=== PATIENT | female | born 2000 | race Caucasian/White ===

== ENCOUNTER 2022-02-22 09:05 | Outpatient (REF) | payer OTHER, SELFPAY ==
[2022-02-22 09:37] LABS: MANUAL DIFF FLAG NO
[2022-02-22 09:56] LABS: Basophils Percent Auto 0.3 % (0-2); Eosinophils Percent Auto 0.1 % (0-4); Hemoglobin 14.8 g/dl (12.0-16.0); Imm Gran Abs Auto 0.02 X10*3/uL (0.00-0.03); Imm Gran Pct Auto 0.3 % (0.0-0.4); Lymphocytes Absolute Auto 2.4 X10*3/uL (1.2-4.9); Lymphocytes Percent Auto 31.5 % (20-40); Mean Corpuscular HGB Conc 32.9 g/dl (31.0-35.0); Mean Corpuscular Hemoglobin 29.6 pg (27.0-33.0); Mean Platelet Volume 10.3 fL (9.4-12.3); Monocytes Absolute Auto 0.2 X10*3/uL (0.1-1.2); Neutrophils Absolute Auto 4.9 x10*3/uL (2.0-8.3); Neutrophils Percent Auto 64.8 % (45-73); Platelet Count 277 X10*3/uL (160-400); Red Cell Distribution Width 12.2 % (11.0-16.0); White Blood Count 7.6 X10*3/uL (4.8-10.8)
[2022-02-22 10:35] LABS: Alanine Aminotransferase 23 U/L (0-31); Albumin Level 4.6 g/dL (3.5-5.0); Alkaline Phosphatase 54 U/L (39-117); Anion Gap 12 (12-20); Aspartate Amino Transferase 16 U/L (5-31); Bilirubin Total 0.8 mg/dL (0.0-1.0); Blood Urea Nitrogen 12 mg/dL (9-16); Calcium 10.1 mg/dL (8.4-10.2); Carbon Dioxide 27 mmol/L (22-29); Chloride 103 mmol/L (96-108); Estimated Glomerular Filt Rate > 60; Glucose Fasting 79 mg/dL (60-99); Potassium 4.5 mmol/L (3.3-5.1); Sodium 137 mmol/L (135-145); Total Protein 7.4 g/dL (6.5-8.0)
[2022-02-22 10:48] LABS: Appearance Urine CLEAR; Color Urine STRAW; Glucose Urine UA NEG (NEG); Leukocyte Esterase Urine 2+ (NEG); Nitrite Urine NEG (NEG); PH 5.5 (5.0-8.0); Specific Gravity - Urine <= 1.005 (1.005-1.025); UACC Culture Trigger YES; Urine Blood TRACE (NEG); Urine Ketones NEG (NEG); Urine Protein NEG (NEG-TRACE)
[2022-02-22 10:56] LABS: TSH reflex Free T4 2.16 uIU/mL (0.32-4.0)
[2022-02-22 10:58] LABS: Bacteria Urine 1+ /LPF; RBC Urine 0-2 /HPF (0); Squamous Epithelial Cell Urine 1+ /LPF
== END 2022-02-22 09:06 | disposition home or self-care (01) ==
LOC: HO.LAB 09:05
PROVIDERS: PCP Nurse Practitioner Family; Visit Provider Nurse Practitioner Family
DX: E78.00 Pure hypercholesterolemia, unspecified (principal); F31.81 Bipolar II disorder; I10 Essential (primary) hypertension; Z76.89 Persons encountering health services in other specified circumstances
CPT/HCPCS: 36415; 80053; 81001; 84443; 85025; 87086

== ENCOUNTER 2023-03-16 17:14 | Outpatient (REF) | payer BC, SELFPAY ==
[2023-03-16 17:32] LABS: MANUAL DIFF FLAG NO
[2023-03-16 17:52] LABS: Basophils Percent Auto 0.2 % (0-2); Hemoglobin 15.5 g/dl (12.0-16.0); Imm Gran Abs Auto 0.04 X10*3/uL (0.00-0.03); Imm Gran Pct Auto 0.4 % (0.0-0.4); Lymphocytes Absolute Auto 3.2 X10*3/uL (1.2-4.9); Lymphocytes Percent Auto 30.8 % (20-40); Mean Corpuscular HGB Conc 34.4 g/dl (31.0-35.0); Mean Corpuscular Hemoglobin 30.4 pg (27.0-33.0); Mean Corpuscular Volume 88.2 fL (80.0-98.0); Mean Platelet Volume 10.8 fL (9.4-12.3); Monocytes Absolute Auto 0.4 X10*3/uL (0.1-1.2); Monocytes Percent Auto 3.7 % (2-11); Neutrophils Absolute Auto 6.7 x10*3/uL (2.0-8.3); Neutrophils Percent Auto 64.9 % (45-73); Platelet Count 281 X10*3/uL (160-400); Red Cell Distribution Width 12.3 % (11.0-16.0); White Blood Count 10.3 X10*3/uL (4.8-10.8)
[2023-03-16 18:06] LABS: UPreg QC Valid YES; Urine Pregnancy NEGATIVE (NEGATIVE)
[2023-03-16 18:14] LABS: Alanine Aminotransferase 22 U/L (0-31); Albumin Level 4.4 g/dL (3.5-5.0); Alkaline Phosphatase 57 U/L (39-117); Anion Gap 13 (12-20); Aspartate Amino Transferase 21 U/L (5-31); Bilirubin Total 0.6 mg/dL (0.0-1.0); Blood Urea Nitrogen 7 mg/dL (9-16); Calcium 9.3 mg/dL (8.4-10.2); Carbon Dioxide 26 mmol/L (22-29); Chloride 104 mmol/L (96-108); Estimated Glomerular Filt Rate > 60; Glucose Random 71 mg/dL (60-115); Potassium 4.2 mmol/L (3.3-5.1); Sodium 139 mmol/L (135-145); Total Protein 7.4 g/dL (6.5-8.0)
[2023-03-16 18:44] LABS: Folate 11.8 ng/mL (> or = 4.0); TSH reflex Free T4 2.78 uIU/mL (0.32-4.0); Vitamin B12 266 pg/mL (200-900); Vitamin D 25-OH Total 31.9 ng/mL (>30)
[2023-03-17 04:09] LABS: Syphilis Screen Nonreactive (Nonreactive)
[2023-03-17 04:39] LABS: HBS Num1 3.06 mIU/mL (0-7.99); HBc Num1 0.09 S/CO (0.00-0.79); HBsAGNum1 0.32 S/CO (0.00-0.99); HIV AB/AG Nonreactive (Nonreactive); HIV Num 1 0.08 S/CO (0.00-0.99); Hepatitis B Core Antibody Nonreactive (Nonreactive); Hepatitis B Surface Antigen Negative (Negative); ~Hepatitis B Surface Antibody NONREACTIVE (Nonreactive); ~Hepatitis C Antibody Nonreactive (Nonreactive)
[2023-03-17 05:40] LABS: CT PCR NOT DETECTED (Not Detect.); NG PCR NOT DETECTED (Not Detect.)
== END 2023-03-16 17:15 | disposition home or self-care (01) ==
LOC: HO.LAB 17:14
PROVIDERS: PCP Nurse Practitioner Family; Visit Provider Nurse Practitioner Family
DX: G43.009 Migraine without aura, not intractable, without status migrainosus (principal); R06.83 Snoring; R53.83 Other fatigue; Z13.29 Encounter for screening for other suspected endocrine disorder; Z20.2 Contact with and (suspected) exposure to infections with a predominantly sexual mode of transmission; R52 Pain, unspecified; G47.00 Insomnia, unspecified; E27.8 Other specified disorders of adrenal gland; M79.7 Fibromyalgia
CPT/HCPCS: 0353U; 80053; 81025; 82306; 82607; 82746; 84443; 85025; 86704; 86706; 86780; 86803; 87340; 87389

== ENCOUNTER → 2023-04-06 15:45 | Outpatient (REF) | payer BC, SELFPAY | LOC: HO.SL 15:45 | PROVIDERS: PCP Physician Assistant; Visit Provider Nurse Practitioner Family | DX: R06.83 Snoring (principal); R53.83 Other fatigue | CPT/HCPCS: 95806 ==

== ENCOUNTER 2023-04-07 09:31 | Outpatient (REF) | payer BC, SELFPAY ==
[2023-04-07 11:00] LABS: C Reactive Protein 0.53 mg/dL (< or = 0.50); Magnesium 1.9 mg/dL (1.6-2.6)
[2023-04-07 11:12] LABS: Erythrocyte Sedimentation Rate 2 MM/HR (0-20)
[2023-04-07 11:46] LABS: Rheumatoid Factor < 13.0 IU/mL (<15.0)
[2023-04-10 21:33] LABS: Lyme Abs Screen <0.90 index
[2023-04-12 14:48] LABS: Anti Nuclear Antibody Screen NEGATIVE (NEGATIVE)
== END 2023-04-07 09:32 | disposition home or self-care (01) ==
LOC: HO.LAB 09:31
PROVIDERS: PCP Nurse Practitioner Family; Visit Provider Nurse Practitioner Family
DX: R52 Pain, unspecified (principal)
CPT/HCPCS: 36415; 83735; 84100; 85652; 86038; 86140; 86431; 86617; 86618

== ENCOUNTER 2023-06-01 10:00 | Outpatient (RCR) | payer BC, SELFPAY ==
--- NOTE | 2023-04-18 14:24 | MHC.PT.EP ---
[facility] [place] Office [place] Office [place] Office [address] [phone] F: [phone] F: [phone] F: [phone] F: [phone] Physical Therapy Plan of Care Date of Evaluation: Date of Surgery: N/A Diagnosis: Pain in right leg fibromyalgia Assessment: Pt is a 23yo F who presents to PT with referral diagnosis of pain in right leg and fibromyalgia. Pt reports she has full body pain. She has had lab work and is also referred to flight service agent, neurologist and export clerk. She presents to PT with current impairments in pain, decreased lumbar ROM, decreased LE strength, decreased core stabilization and impaired gait. She is limited functionally by prolonged standing, bending, walking, stair navigation, and sleeping. She is a good candidate to trial skilled PT in order to address current impairments to facilitate management of symptoms and return to PLOF. She is recommended to be seen 2x/week for 4 weeks and will be reassessed at this time. 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 Manual therapy to restore motion and function. Therapeutic exercise to improve strength and flexibility. Neuromuscular re-education for posture and balance. Therapeutic activities to return to functional activities of daily living. Electronically signed by: Lauren Brown, PT, DPT Please sign and return to therapist. Thank you for your referral.
== END 2023-11-14 10:37 | disposition home or self-care (01) ==
LOC: HO.PTWFD 10:00
PROVIDERS: PCP Physician Assistant; Visit Provider Nurse Practitioner Family
DX: M79.604 Pain in right leg (principal); M79.7 Fibromyalgia
CPT/HCPCS: 97014; 97110; 97140; 97163; 97535

== ENCOUNTER 2023-06-07 15:36 | Outpatient (AMB) | payer BC, SELFPAY ==
[2023-06-07 15:46] VITALS: BP 104/66; PULSE 111; O2SAT 98; BMI 24.0
--- NOTE | 2023-06-07 15:46 | MHC.PC.OV ---
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 Medical history significant for bipolar 2 disorder-followed by Psychiatry Dr. Oh and therapist, migraine - was seen by [facility] and started on propranolol and referred to sleep medicine, fibromyalgia - being diagnosed by rheumatology in the past per patient, adrenal hyperplasia - reports being diagnosed by rheumatology in the past - will be seeing Endocrinology 06/2023.? Patient denies injury.? She reports pain all over her body, and OTC medications with no help.? Patient describes her pain as intermittent, pulsating, sharp, ache, and she reports this pain mostly in the muscles that come and go all over her body.? She also reports numbness and tingling in her feet and hands.? Patient has an upcoming appointment with rheumatology 05/2023.? Patient has finished physical therapy with no improvement in her pain.? Patient was on gabapentin in the past with no much improvement in her symptoms and she stopped the medication due to side effects. Patient is accompanied by her mother. ? 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 How often do you have a drink containing alcohol?: 2-4 times a month 2. How many drinks containing alcohol do you have on a typical day when you are drinking?: 1 or 2 3. How often do you have six or more drinks on one occasion?: Never Total Score: 2 Score Reviewed/Action Taken: No MARGARITA-7 AMB Questionnaire AMRGARITA-7 Date MARGARITA - 7 assessed: 03/16/23 (pt currently taking medication ) Source: Developed by Drs. Michelet Parrish, Barby Black, Lemuel Rene and colleagues, with an educational caesar from [employer]. Review of Systems Const Denies body aches, Denies chills, Reports fatigue, Denies fever(s) and Reports headache(s) Eyes Denies change in vision ENT Denies dizziness, Denies otalgia, Reports headache(s), Denies nasal discharge, Denies sinus pain and Denies sore throat Card Denies chest pain, Denies edema, Denies lightheadedness and Denies dyspnea Resp Denies cough and Denies dyspnea GI Denies constipation, Denies diarrhea, Denies nausea and Denies vomiting Denies dysuria Musc Reports as per HPI, Reports back pain, Reports myalgias, Reports arthralgias (hands and wrists ), Denies joint swelling, Reports numbness and Reports tingling Skin/Breast Denies lesions and Denies rash Neuro Denies dizziness, Reports headache(s), Reports numbness and Reports tingling Endo Reports fatigue Physical exam (Primary Care) Vital Signs: Last Vital Signs Pulse 111 H 06/07/23 15:46 BP 104/66 06/07/23 15:46 Pulse Ox 98 06/07/23 15:46 Oxygen Delivery Method Room Air 06/07/23 15:46 BMI result Body Mass Index 24.0 Tobacco/Smoking Status: Tobacco use Status Tobacco use date assessed 06/07/23 06/07/23 15:47 Patient Tobacco Use Status Never used Tobacco 06/07/23 15:47 e-Cigarette/Vaping Use Never Used 06/07/23 15:47 Thrive Assessment: Date of Thrive Assessment Date Thrive assessed 03/16/23 06/07/23 15:47 Const General: cooperative and no acute distress Orientation/consciousness: patient oriented x3 HENMT Other: Left TM normal Right TM partially obstructed by cerumen visualized TM Head: Yes normocephalic and Yes atraumatic Face and sinus: Yes sinuses nontender Mouth: oropharynx normal and moist mucous membranes Throat: Yes posterior oropharynx normal Eyes General: appearance normal, both eyes and all related structures Pupils: Equal, round and reactive pupils present EOM: EOMs intact bilaterally Neck Neck: Yes normal visual inspection, Yes full ROM and Yes no lymphadenopathy Thyroid: other (Anterior neck fullness noted) Resp Effort & Inspection: normal respiratory effort and able to speak in complete sentences Auscultation: clear to auscultation bilaterally, no crackles, no rales, no rhonchi and no wheezes Cardio Rate: regular rate Rhythm: regular rhythm Heart sounds: S1 normal heart sound present, S2 normal heart sound present and no murmurs GI Palpation (GI): Soft to palpation, not firm, nontender, no guarding, not rigid and no hepatosplenomegaly Auscultation: normal bowel sounds General: No CVA tenderness Back/Spine/Pelvis Back: No CVA tenderness Thoracic/Lumbar Spine: thoraco-lumbar ROM normal, straight leg raise negative bilaterally, No paraspinal muscle tenderness, thoracic spinal tenderness and lumbar spinal tenderness Skin General skin exam: no rashes or lesions noted Neuro General: patient oriented x3 Cranial nerves: Yes Equal, round and reactive pupils present Gait exam (Neuro): Normal gait present Motor exam (neuro): 5/5 motor strength present throughout Extrem General: Yes full ROM and No edema Assessment and Plan Assessment & Plan (1) Adrenal hyperplasia: Code(s): E27.8 - Other specified disorders of adrenal gland Plan: Patient has an upcoming appointment with endocrinology 06/2023 (2) Fibromyalgia: Code(s): M79.7 - Fibromyalgia Plan: Will be seeing rheumatology 05/2023 Patient reports that she was on gabapentin in the past although she stopped taking it due to side effects Patient also did have physical therapy with no improvement in her pain (3) Back pain: Code(s): M54.9 - Dorsalgia, unspecified Plan: Physical exam revealed thoracic and lumbar spinal tenderness. Patient has finished physical therapy with no improvement in pain. Will obtain x-ray of thoracic and lumbar spine. Patient was on tizanidine with no improvement in pain. Stop tizanidine. Trial of baclofen 5 mg b.i.d. p.r.n.-educated about drowsiness. Will provide patient with diclofenac cream b.i.d. p.r.n.. Continue heating packs p.r.n.. (4) Whole body pain: Code(s): R52 - Pain, unspecified Plan: Will be seeing rheumatology 05/2023 (5) Neck fullness: Code(s): R22.1 - Localized swelling, mass and lump, neck Plan: Recent thyroid blood work normal, will obtain thyroid ultrasound Plan Follow-up in 3 months or sooner as needed Orders: Orders XR lumbar spine 4V min Today M54.9 - Dorsalgia, unspecified XR thoracic spine 3V Today M54.9 - Dorsalgia, unspecified US thyroid Today R22.1 - Localized swelling, mass and lump, neck Medications: New baclofen 5 mg PO BID PRN 10 tabs 0RF muscle spasm M54.9 - Dorsalgia, unspecified diclofenac sodium 3% 1 appl topical BID PRN 100 grams 0RF pain M54.9 - Dorsalgia, unspecified Coding Level of Care Code Est Pt Level 4 (96534) Diagnoses Adrenal hyperplasia E27.8 Fibromyalgia M79.7 Back pain M54.9 Whole body pain R52 Neck fullness R22.1
== END 2023-06-07 16:12 | disposition home or self-care (01) ==
PROVIDERS: PCP Nurse Practitioner Family; Visit Provider Nurse Practitioner Family
DX: E27.8 Other specified disorders of adrenal gland (principal); M79.7 Fibromyalgia; M54.9 Dorsalgia, unspecified; R22.1 Localized swelling, mass and lump, neck
CPT/HCPCS: 99214

== ENCOUNTER 2023-06-07 16:18 | Outpatient (REF) | payer BC, SELFPAY ==
--- NOTE | ~2023-06-07 | XR_ITS ---
EXAMINATION: XR LUMBOSACRAL SPINE WITH OBLIQUES CLINICAL INFORMATION: Pain COMPARISON: None available. TECHNIQUE: AP, both oblique, and lateral views of the lumbar spine. Lateral view of the lumbosacral junction. FINDINGS: The vertebral bodies and posterior elements are normal. The disc spaces are preserved and the vertebral alignment is normal. The paraspinal soft tissues are normal. XR/XR lumbar spine 4V min IMPRESSION: Unremarkable examination.
--- NOTE | ~2023-06-07 | XR_ITS ---
EXAMINATION: XR THORACIC SPINE CLINICAL INFORMATION: Pain COMPARISON: None available. TECHNIQUE: 3 views of the thoracic spine were obtained. FINDINGS: Minor endplate spurring particularly upper and mid dorsal spine. Minor scoliosis convex left. Vertebral heights and disc spaces are preserved. No paraspinal soft tissue lesion. XR/XR thoracic spine 3V IMPRESSION: Minor degenerative disc disease. No fracture.
== END 2023-06-07 16:19 | disposition home or self-care (01) ==
LOC: HO.XRAY 16:18
PROVIDERS: PCP Nurse Practitioner Family; Visit Provider Nurse Practitioner Family
DX: M54.9 Dorsalgia, unspecified (principal)
CPT/HCPCS: 72072; 72110

== ENCOUNTER 2023-06-15 14:18 | Outpatient (REF) | payer BC, SELFPAY ==
--- NOTE | ~2023-06-15 | US_ITS ---
EXAMINATION: US THYROID CLINICAL INFORMATION: Localized swelling, mass and lump, neck. COMPARISON: None available. TECHNIQUE: Linear transducer grayscale and color Doppler examination with attention to the region of the thyroid. FINDINGS: SIZE: Measurements of the thyroid lobes and nodules are given in sagittal, anteroposterior and transverse dimensions respectively. Right Thyroid Lobe: 3.6 x 1.0 x 1.4 cm, volume 2.6 mL. Parenchyma: The gland echotexture is homogeneous. Thyroid vascularity is normal. Left Thyroid Lobe: 3.8 x 0.8 x 1.3 cm, volume 2.1 mL. Parenchyma: The gland echotexture is homogeneous. Thyroid vascularity is normal. Isthmus: 0.2 cm in maximum AP dimension. No focal thyroid nodule is seen. NODES: No lymphadenopathy is seen in the tissue surrounding the thyroid gland. US/US thyroid IMPRESSION: No suspicious thyroid nodules. ACR TI-RADS RECOMMENDATION REFERENCE: Ultrasound-guided fine-needle aspiration, followup ultrasound, no further follow up. * TR1 (0 point) and TR2 (2 points): No FNA or follow up. * TR3 (3 points): FNA if more than or equal to 2.5 cm in maximum dimension, followup ultrasound in 1, 3 and 5 years if 1.5 to 2.4 cm in maximum dimension. * TR4 (4-6 points): FNA if more than or equal to 1.5 cm in maximum dimension, followup ultrasound in 1, 2, 3 and 5 years if 1 to 1.4 cm in maximum dimension. * TR5 (more than or equal to 7 points): FNA if more than or equal to 1 cm in maximum dimension, followup ultrasound every year for 5 years if 0.5 to 0.9 cm in maximum dimension. * TR3, TR4 or TR5 nodules that are below the size threshold for followup receive no follow up.
== END 2023-06-15 14:19 | disposition home or self-care (01) ==
LOC: HO.US 14:18
PROVIDERS: PCP Nurse Practitioner Family; Visit Provider Nurse Practitioner Family
DX: R22.1 Localized swelling, mass and lump, neck (principal)
CPT/HCPCS: 76536

== ENCOUNTER 2023-06-26 12:53 | Outpatient (AMB) | payer BC, SELFPAY ==
[2023-06-26 12:58] VITALS: BP 108/62; PULSE 107; TEMP 36.3; O2SAT 97; BMI 23.7
--- NOTE | 2023-06-26 12:58 | A.OFFVIS_ITS ---
Intake Vital Signs 06/26/23 12:58 Height 5 ft 2 in Weight 129 lb 13.636 oz BMI 23.7 BP 108/62 Blood Pressure Location Rt brachial Position Sitting Pulse 107 H Pulse Source Pulse Oximeter Temp 97.4 F Temp Source Skin Pulse Oximetry (%) 97 Intake Visit Reasons: FM/Rt leg pain Intake Note: * New pt present today for consult. * C/o pain everywhere Linen Keeper Required: No Accompanied by: Father Allergies No Known Allergies Allergy (Verified 06/26/23 13:00) Medication List - Last Reconciled 06/26/23 by Jimenez Allen MD baclofen 5 mg PO BID PRN buspirone 30 mg PO BID hydroxyzine HCl 25 mg PO BID PRN lamotrigine 200 mg PO BEDTIME norethindrone ac-eth estradiol 1-20 mg-mcg (Loestrin) 1 tab PO DAILY propranolol 10 mg PO BID quetiapine ER 300 mg PO BEDTIME sumatriptan succinate 50 mg PO Q2-4H PRN HPI HPI Comments History of Present Illness Details The patient presents with her father for evaluation of widespread pains and elevated CRP. Her pain syndrome dates back about 5 years. There is a note in the [facility] system from Dr. Rubio, a pediatric rheumatologistfrom about 4-5 years ago. He was impressed by her widespread pain and her back pain at the time and there was suspicion about a spondyloarthritis. Areas of pain include most any joint that is mentioned. She has back pain that is worse with activity but also bothers her at night. She has tried multiple NSAIDs without improvement. Other pain areas include the shoulders, arms, hands, fingers, thighs, knees, ankles and ribs. She does not really notice any significant joint swelling. She also complains of significant fatigue and low energy. She tells me that any attempt at physical activity causes pain. She was tried on gabapentin in the past but it apparently caused too much sedation. She has some baclofen at home that she uses occasionally but she is not sure it helps much. She takes 1 g t.i.d. of acetaminophen if needed. She apparently has bipolar 2 disorder. She is currently on Seroquel at night, lamotrigine at night, and occasionally hydroxyzine for anxiety. Father says that she has nonclassical adrenal hyperplasia. No treatment for that is in place they say although she is on a control pill. Additional attempts at treatment of her pain have in cluded acupuncture, massage, transitional care manager and physical therapy. She notably got worse in February after a trip to [facility] on vacation. 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 She has an FMLA in effect and receives no compensation. The FMLA expires soon and her primary doctor and other doctors have not voiced any support to continue that leave. Indeed her exercise intolerance is profound, she describes having pain for days if she takes a walk, tries some stretching activity, or even housework. [facility] Medical History COVID-19 virus infection (~12/2021) Encounter to establish care Surgical History No pertinent past surgical history Family History (Updated 06/26/23 @ 13:09 by RITU Goldberg) Mother Migraines Father IBS (irritable bowel syndrome) Maternal Aunt Diabetes type I Maternal Grandmother Hx of thyroidectomy Goiter Social History (Updated 06/26/23 @ 13:04 by RITU Goldberg) Household Members: Family Housing: House Alcohol intake: current Alcohol intake frequency: holidays/special occasions only Patient Tobacco Use Status: Never used Tobacco e-Cigarette/Vaping Use: Never Used Second Hand Smoke Exposure: No service: No Current occupational status: employed 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 Negative for appetite change, weight change, fever, chills, malaise Eyes Details: Negative for vision change, dry eyes,headaches and dizziness ENT Details: Negative for hearing change, tinnitus, oral ulcer, nose bleeds and oral dryness. Card Details: Negative chest pain, edema and syncope Resp Details: Negative for SOB, cough and wheezing GI Details: Negative indigestion/heartburn, nausea, abdominal pain, bowel changes, diarrhea, constipation and bloody stool. Details: Negative for dysuria, hematuria, nocturia, decreased force/flow and genital discharge Skin/Breast Details: Some color changes in the fingertips suggesting Raynaud's phenomena. Negative for itching, rash, hives, sun sensitivity, and skin cancer Neuro Details: Intermittent migraine headaches. Occasional tingling in the hands and feet. Negative for epilepsy, palsy, stroke, changes in speech, and weakness Psych Details: Bipolar disorder, apparently treated in Psychiatry. Still some symptoms of depression and anxiety today. Endo Details: Negative for polyuria and polydypsia Artie/Lymph Details: Negative for excessive bruising or bleeding. Physical Exam Vital Signs: Last Vital Signs Temp 97.4 F 06/26/23 12:58 Pulse 107 H 06/26/23 12:58 BP 108/62 06/26/23 12:58 Pulse Ox 97 06/26/23 12:58 BMI result Body Mass Index 23.7 APPEARANCE: Patient in no acute distress EYES no redness, pupils equal and reactive to light, eyelids normal EARS: External ear normal, canal clear and tympanic membrane normal. NOSE/SINUS: Airflow through both nares, no nasal discharge, no bleeding THROAT: Oral mucosa moist, no ulcerations NECK: No thyromegaly or masses, no adenopathy, trachea midline. HEART: Regulrar rhythm, S1-S2 heard, no murmurs, rubs or gallops. LUNG: Clear to percussion and auscultation ABD: Normal bowel sounds, no organomegaly, masses or tenderness. EXTREMITIES: No edema, no calf tenderness, normal peripheral pulses. NEURO: Oriented and alert x3. No focal weakness. Reflexes symmetric. Gait normal. SKIN: No inflammatory or neoplastic lesions. No inflammatory lesions. No objective signs of Raynaud's phenomenon. JOINT EXAM:.?? Cervical Spine:.? Mild pain with lateral flexion at 15 degrees or rotation at 45 degrees. Some paraspinal muscle tenderness. Thoracic Spine:.? No scoliosis.? No tenderness on palpation. Lateral Tyson's is normal. Lumbar Spine:.? Alignment normal.? Mild pain with 60 degrees flexion. I do not detect significant limitation of motion. Mild paraspinal muscle tenderness. Chest Wall:.? No tenderness, swelling, increased warmth or erythema. Hands:.? Normal pain-free range of motion. There is tenderness over the MCP and PIP regions but there is no swelling, redness, or warmth. No thenar atrophy or sensory loss. No objective signs of Raynaud's disease. Wrists:.? There is mild pain with flexion extension at 80 degrees. There is some slight dorsal tenderness but no swelling, increased warmth or erythema. Elbows:. Normal pain-free range of motion without tenderness, swelling, increased warmth or erythema. Shoulders:.?? Full range of motion without pain. No tenderness, weakness, swelling, increased warmth or erythema. Hips:.? Full range of motion with some lumbar pain at the extremes of internal or external rotation. No groin pain with motion. Hip bursa:.? Mild trochanteric tenderness. Knees:.?? Normal pain-free range of motion without tenderness, swelling, increased warmth or erythema.? There is no effusion or crepitation Ankles:.? Normal pain-free range of motion with slight tenderness but no swelling, increased warmth or erythema. Feet:.? Normal pain-free range of motion with slight tenderness in the insteps. No tenderness is present in the instep. Elsewhere there is no the tenderness, swelling, increased warmth or erythema. Tender points:.? Mild tenderness to digital palpation at the occiput, trapezius, second rib, lateral epicondyle, knees, greater trochanter and gluteal area bilaterally. ? Results Reviewed Results Reviewed: Laboratory Tests 02/22/22 04/07/23 04/07/23 09:26 09:56 09:56 ESR 2 Urine Protein NEG Rheumatoid Factor < 13.0 [facility] Screen 04/07/23 09:56 ESR Urine Protein Rheumatoid Factor [facility] Screen NEGATIVE Laboratory Tests 03/16/23 04/07/23 17:28 09:56 AST 21 ALT 22 C-Reactive Protein 0.53 H TSH 2.78 [place] [address] XRay Report Signed Patient: Dolly Stewart MR#: [id number] : 2000 Acct:[id number] Age/Sex: 23 / F ADM Date: 06/07/23 Loc: [facility] Attending Dr: Antonina LINTON Ordering Physician: Antonina Wells Date of Service: 06/07/23 Procedure(s): XR thoracic spine 3V Accession Number(s): [id number] cc: Saykin,Antonina PUBLIC WORKS INSPECTOR~ EXAMINATION: XR THORACIC SPINE CLINICAL INFORMATION: Pain COMPARISON: None available. TECHNIQUE: 3 views of the thoracic spine were obtained. FINDINGS: Minor endplate spurring particularly upper and mid dorsal spine. Minor scoliosis convex left. Vertebral heights and disc spaces are preserved. No paraspinal soft tissue lesion. XR/XR thoracic spine 3V IMPRESSION: Minor degenerative disc disease. No fracture. ? Dictated By: Andriy Kendrick MD [place] [address] XRay Report Signed Patient: Dolly Stewart MR#: [id number] : 2000 Acct:[id number] Age/Sex: 23 / F ADM Date: 06/07/[address]: Antonina Wells PUBLIC WORKS INSPECTOR Ordering Physician: Antonina Wells Date of Service: 06/07/23 Procedure(s): XR lumbar spine 4V min Accession Number(s): [id number] cc: Antonina Wells PUBLIC WORKS INSPECTOR~ EXAMINATION: XR LUMBOSACRAL SPINE WITH OBLIQUES CLINICAL INFORMATION: Pain? COMPARISON: None available.? TECHNIQUE: AP, both oblique, and lateral views of the lumbar spine. Lateral view of the lumbosacral junction.? FINDINGS: The vertebral bodies and posterior elements are normal. The disc spaces are preserved and the vertebral alignment is normal. The paraspinal soft tissues are normal.? XR/XR lumbar spine 4V min IMPRESSION: Unremarkable examination.? ? Dictated By: Andriy Kendrick MD Assessment & Plan Assessment & Plan (1) Whole body pain: Code(s): R52 - Pain, unspecified (2) CRP elevated: Code(s): R79.82 - Elevated C-reactive protein (CRP) (3) Bipolar 2 disorder: Code(s): F31.81 - Bipolar II disorder (4) Fibromyalgia: Code(s): M79.7 - Fibromyalgia Plan Presently I do not see any signs of a peripheral joint synovitis. She has many tender points. Radiographs of the spine have been normal or showing only minimal abnormalities. There is some nocturnal spinal pain and mild elevation of the CRP which raises the question of a spondyloarthropathy. I think overall she certainly has fibromyalgia. Whether she has some concomitant spondyloarthritis is hard to determine with data so far. We will recheck acute phase reactants. If there is elevation I think we may proceed further with MRI scanning of the pelvis looking for inflammation at the SI joints. As far as treatment for the fibromyalgia, that is complicated by her underlying mental illness. Antidepressant therapy may be problematic in a person with bipolar disorder. I did suggest she talk to her psychiatrist about the altering her medications with the idea of treating some fibromyalgia if possible with an antidepressant. She did have some side effects with high-dose gabapentin so we will try some low-dose Lyrica, 25 mg caps are prescribed. She will try 1 every night for week and then go up to 2 tablets at night. If after a few weeks on that she still has significant pain we could increase the dose if tolerated. I told her that she needed to try to be more physically active even though it may be uncomfortable for her it would improve her functioning. She should realize fibromyalgia is not a progressive disorder and that activity may actually improve her functioning although it has limited effects on improving the pain. I told her I would fill out the FMLA form to the best of my ability. I do not think she can do physical labor but she may want to pursue some retraining to have a job that is less physically demanding. A follow-up in a couple months is recommended. I will get back to her with the results of her blood studies.Review mof her history, [facility] records, physical exam and treatment options took 50 minutes. Orders: Orders Cyclic Citrullinated Peptide Today M79.7 - Fibromyalgia, R52 - Pain, unspecified, R79.82 - Elevated C-reactive protein (CRP) C Reactive Protein Today M79.7 - Fibromyalgia, R52 - Pain, unspecified, R79.82 - Elevated C-reactive protein (CRP) Erythrocyte Sedimentation Rate Today M79.7 - Fibromyalgia, R52 - Pain, unspecified, R79.82 - Elevated C-reactive protein (CRP) Medications: New pregabalin 25 mg PO BID 60 caps 1RF M79.7 - Fibromyalgia Coding Level of Care Code New Pt Level 4 (73264) Diagnoses Whole body pain R52 CRP elevated R79.82 Bipolar 2 disorder F31.81 Fibromyalgia M79.7
== END 2023-06-26 14:10 | disposition home or self-care (01) ==
PROVIDERS: PCP Nurse Practitioner Family; Visit Provider Internal Medicine Rheumatology
DX: R52 Pain, unspecified (principal); R79.82 Elevated C-reactive protein (CRP); F31.81 Bipolar II disorder; M79.7 Fibromyalgia
CPT/HCPCS: 99204

== ENCOUNTER 2023-06-26 12:53 | Outpatient (REF) | payer BC, SELFPAY ==
[2023-06-26 16:45] LABS: Erythrocyte Sedimentation Rate 2 MM/HR (0-20)
[2023-06-26 16:51] LABS: C Reactive Protein 0.55 mg/dL (< or = 0.50)
[2023-06-28 13:54] LABS: Cyclic Citrullinated Peptide <16 UNITS
== END 2023-06-26 12:54 | disposition home or self-care (01) ==
LOC: HO.LAB 12:53
PROVIDERS: PCP Nurse Practitioner Family; Visit Provider Internal Medicine Rheumatology
DX: M79.7 Fibromyalgia (principal); R79.82 Elevated C-reactive protein (CRP); R52 Pain, unspecified; F31.81 Bipolar II disorder
CPT/HCPCS: 36415; 85652; 86140; 86200

== ENCOUNTER 2023-06-30 20:29 | Emergency (ER) | payer BC, SELFPAY ==
[2023-06-30 20:40] VITALS: BP 129/102; PULSE 128; RESP 16; TEMP 36.7; O2SAT 96; BMI 23.8
--- NOTE | 2023-06-30 20:48 | ED_ITS ---
HPI - General Adult General Chief complaint: Allergic Reaction Stated complaint: medication reaction? Time Seen by Provider: 06/30/23 21:04 Source: patient Mode of arrival: ambulatory Limitations: no limitations History of Present Illness HPI narrative: Patient is 23 years old history of bipolar disorder on buspirone Seroquel , lamictal and started on Lyrica 25mg BID 4 days ago today but last few hours patient been very agitated not feeling herself very flushed uncontrolled movement diaphoresis very anxious on arrival Related Data Home Medications Medication Instructions Recorded Confirmed buspirone 30 mg tablet 30 mg PO BID 02/14/22 06/26/23 lamotrigine 200 mg tablet 200 mg PO BEDTIME 02/14/22 06/26/23 quetiapine 300 mg tablet,extended 300 mg PO BEDTIME 02/14/22 06/26/23 release 24 hr propranolol 10 mg tablet 10 mg PO BID 06/07/23 06/26/23 hydroxyzine HCl 25 mg tablet 25 mg PO BID PRN 06/26/23 06/26/23 Previous Rx's Medication Instructions Recorded norethindrone acetate 1 mg-ethinyl 1 tab PO DAILY #63 tabs 03/16/23 estradiol 20 mcg tablet (Loestrin) sumatriptan succinate 50 mg tablet 50 mg PO Q2-4H PRN migraine 03/16/23 headache #14 tabs baclofen 5 mg tablet 5 mg PO BID PRN muscle spasm #10 06/07/23 tabs pregabalin 25 mg capsule 25 mg PO BID #60 caps 06/26/23 Allergies Allergy/AdvReac Type Severity Reaction Status Date / Time No Known Allergies Allergy Verified 06/30/23 20:57 Review of Systems Review of Systems: Yes all other systems are reviewed and are negative PMFSH Past Medical History Medical History COVID-19 virus infection (~12/2021) Encounter to establish care Surgical History No pertinent past surgical history Family History Family History Mother Migraines Father IBS (irritable bowel syndrome) Maternal Aunt Diabetes type I Maternal Grandmother Hx of thyroidectomy Goiter Social History Social History Household Members: Family Housing: House Alcohol intake: current Alcohol intake frequency: holidays/special occasions only Patient Tobacco Use Status: Never used Tobacco e-Cigarette/Vaping Use: Never Used Second Hand Smoke Exposure: No Advance Directives: No Advance Directives Information Provided: No service: No Current occupational status: employed 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 Cognitive needs: No Hearing needs: No Vision needs: Yes (glasses) Physical Exam ED Vital Signs: Vital Signs - 24 hr 06/30/23 20:40 06/30/23 20:57 06/30/23 22:50 Temperature 98.0 F Pulse Rate 128 H 131 H 130 H Respiratory Rate 16 18 18 Blood Pressure 129/102 H 134/84 122/79 Pulse Oximetry 96 98 99 Oxygen Delivery Method Room Air Room Air Room Air 06/30/23 23:51 06/30/23 23:52 06/30/23 23:52 Temperature Pulse Rate 140 H 129 H 160 H Respiratory Rate Blood Pressure 134/87 133/93 H Pulse Oximetry Oxygen Delivery Method 07/01/23 01:30 07/01/23 03:20 Temperature 98.7 F 98.0 F Pulse Rate 114 H 81 Respiratory Rate 19 12 Blood Pressure 100/59 L 111/64 Pulse Oximetry 98 98 Oxygen Delivery Method Room Air Room Air BMI result Body Mass Index 23.8 Appearance: Alert. Oriented X3. Very anxious moving her all 4 extremities Eyes: PERRLA, No Nystagmus no clonus ENT: Pharynx normal. Oral Mucosa moist Neck: Normal inspection. Neck supple. CVS: Sinus tachycardia no murmur or gallop. Pulses normal. Respiratory: No respiratory distress. Equal air entry bilateral, no wheezing/rales/rhonchi Abdomen: Soft and nontender. Bowel sounds are present, no mass palpable, no CVA tenderness Skin: Skin warm and dry. Normal skin color. Normal skin turgor. Extremities: No lower extremity edema. No calf tenderness Neuro: Oriented X 3. No motor deficit. No sensory deficit.No cerebellar signs , cranial nerves II-XII intact normal tone hyper reflexia Course Course Course Narrative: This is a rapid medical exam: Additional HPI, ROS, PE not included below will be deferred to primary provider. Patient is a 23-year-old female currently on lamictal, buspar, and seroquel presenting to the ED with parents who report patient has become tachycardic, developed muscle twitching, and diaphoresis sinc e starting on 25mg of lyrica for pain one week ago. Father is CLINICAL EXERCISE SPECIALIST, concerned for serotonin syndrome. operations executive notified, patient brought directly to room inside ED. Medications Administered Discontinued Medications Generic Name Dose Route Start Last Admin Trade Name Freq PRN Reason Stop Dose Admin Diphenhydramine HCl 25 mg 06/30/23 22:33 06/30/23 22:41 Diphenhydramine Hcl 50 Mg/Ml Vial IVPUSH 06/30/23 22:34 25 mg ONCE ONE Administration Sodium Chloride 1,000 mls @ 999 mls/hr 06/30/23 21:07 06/30/23 22:42 Ns IV 06/30/23 22:07 Infused .Q1H1M ONE Infusion Sodium Chloride 1,000 mls @ 999 mls/hr 06/30/23 23:44 07/01/23 01:14 Ns IV 07/01/23 00:44 Infused .Q1H1M ONE Infusion Sodium Chloride 1,000 mls @ 999 mls/hr 06/30/23 23:46 07/01/23 00:01 Ns IV 07/01/23 00:46 Infused .Q1H1M ONE Infusion Lorazepam 2 mg 06/30/23 21:13 06/30/23 21:19 Lorazepam 1 Mg Tablet PO 06/30/23 21:14 2 mg ONCE ONE Administration Lorazepam 1 mg 06/30/23 22:33 06/30/23 22:41 Lorazepam 2 Mg/Ml Vial IVPUSH 06/30/23 22:34 1 mg ONCE ONE Administration Lorazepam 1 mg 07/01/23 02:50 07/01/23 03:13 Lorazepam 1 Mg Tablet PO 07/01/23 02:51 1 mg ONCE ONE Administration Metoprolol Tartrate 25 mg 07/01/23 00:51 07/01/23 01:11 Metoprolol Tartrate 25 Mg Tablet PO 07/01/23 00:52 25 mg ONCE ONE Administration Protocol Medical Decision Making Medical Decision Making MDM Narrative: Patient with bipolar disorder in on multiple medications only buspirone is the SSRI and dose has not been changed unlikely to be certain syndrome as patient does not have eye clonus patient's symptoms improved after benzos IV discharge patient home advised to continue medication may discuss with psychiatry about medication interactions Differential Diagnosis Differential Diagnoses: The differential diagnosis associated with the presentation includes Serotonin syndrome/anxiety/dystonia Lab Data MDM Lab Attestation statement: I reviewed the patient's lab results. 06/30/23 21:41 06/30/23 21:41 Labs: Lab Results 06/30/23 06/30/23 06/30/23 Range/Units 21:41 21:41 22:59 WBC 11.2 H (4.8-10.8) X10*3/uL RBC 4.96 (4.20-5.50) X10*6/uL Hgb 14.8 (12.0-16.0) g/dl Hct 42.3 (37.0-47.0) % MCV 85.3 (80.0-98.0) fL MCH 29.8 (27.0-33.0) pg MCHC 35.0 (31.0-35.0) g/dl RDW 11.7 (11.0-16.0) % Plt Count 264 (160-400) X10*3/uL MPV 10.2 (9.4-12.3) fL Immature Gran % (Auto) 0.4 (0.0-0.4) % Neut % (Auto) 64.8 (45-73) % Lymph % (Auto) 30.4 (20-40) % [place] % (Auto) 4.2 (2-11) % Eos % (Auto) 0.0 (0-4) % Baso % (Auto) 0.2 (0-2) % Lymph # (Auto) 3.4 (1.2-4.9) X10*3/uL [place] # (Auto) 0.5 (0.1-1.2) X10*3/uL Eos # (Auto) 0.0 (0.0-0.4) X10*3/uL Baso # (Auto) 0.0 (0.0-0.2) X10*3/uL Abs Immat Gran (auto) 0.05 H (0.00-0.03) X10*3/uL Absolute Neuts (auto) 7.3 (2.0-8.3) x10*3/uL Absolute Nucleated RBC 0.000 (0.0-0.012) X10*3/uL Nucleated RBC % (auto) 0.0 (0.0-0.2) /100WBC Sodium 140 (135-145) mmol/L Potassium 3.6 (3.3-5.1) mmol/L Chloride 105 (96-108) mmol/L Carbon Dioxide 19 L (22-29) mmol/L Anion Gap 20 (12-20) BUN 8 L (9-16) mg/dL Creatinine 0.69 (0.5-1.4) mg/dL Estim Creat Clear Calc 102.0 Estimated GFR > 60 Random Glucose 71 (60-115) mg/dL Calcium 9.5 (8.4-10.2) mg/dL Total Bilirubin 0.5 (0.0-1.0) mg/dL AST 12 (5-31) U/L ALT 10 (0-31) U/L Alkaline Phosphatase 40 (39-117) U/L Total Creatine Kinase 41 (26-140) U/L Total Protein 7.4 (6.5-8.0) g/dL Albumin 4.2 (3.5-5.0) g/dL Urine Color Yellow Urine Appearance Clear Urine pH 6.0 (5.0-9.0) Ur Specific [place] 1.015 (1.005-1.025) Urine Protein Negative (Neg-Trace) mg/dL Urine Glucose (UA) Negative (Negative) mg/dL Urine Ketones 40 (Negative) mg/dL Urine Blood Negative (Negative) Urine Nitrite Negative (Negative) Ur Leukocyte Esterase Small (1+) H (Negative) Urine RBC 0-2 (0-2) /HPF Urine WBC 0-5 (0-5) /HPF Ur Squamous Epith Cells 3-5 (0-2) /HPF Urine Bacteria Trace (None Seen) Hyaline Casts 0-2 (0-2) /LPF Urine Test (NEGATIVE) Urine Opiates Screen (Not Detect) Urine Fentanyl Screen (Not Detect) Ur Barbiturates Screen (Not Detect) Ur Phencyclidine Scrn (Not Detect) Ur Amphetamines Screen (Not Detect) U Benzodiazepines Scrn (Not Detect) Urine Cocaine Screen (Not Detect) U Marijuana (THC) Screen (Not Detect) COVID-19 (ELEN) (Negative) COVID-19 Clin Com 0806/30/23 07/01/23 Range/Units 22:59 22:59 00:19 WBC (4.8-10.8) X10*3/uL RBC (4.20-5.50) X10*6/uL Hgb (12.0-16.0) g/dl Hct (37.0-47.0) % MCV (80.0-98.0) fL MCH (27.0-33.0) pg MCHC (31.0-35.0) g/dl RDW (11.0-16.0) % Plt Count (160-400) X10*3/uL MPV (9.4-12.3) fL Immature Gran % (Auto) (0.0-0.4) % Neut % (Auto) (45-73) % Lymph % (Auto) (20-40) % [place] % (Auto) (2-11) % Eos % (Auto) (0-4) % Baso % (Auto) (0-2) % Lymph # (Auto) (1.2-4.9) X10*3/uL [place] # (Auto) (0.1-1.2) X10*3/uL Eos # (Auto) (0.0-0.4) X10*3/uL Baso # (Auto) (0.0-0.2) X10*3/uL Abs Immat Gran (auto) (0.00-0.03) X10*3/uL Absolute Neuts (auto) (2.0-8.3) x10*3/uL Absolute Nucleated RBC (0.0-0.012) X10*3/uL Nucleated RBC % (auto) (0.0-0.2) /100WBC Sodium (135-145) mmol/L Potassium (3.3-5.1) mmol/L Chloride (96-108) mmol/L Carbon Dioxide (22-29) mmol/L Anion Gap (12-20) BUN (9-16) mg/dL Creatinine (0.5-1.4) mg/dL Estim Creat Clear Calc Estimated GFR Random Glucose (60-115) mg/dL Calcium (8.4-10.2) mg/dL Total Bilirubin (0.0-1.0) mg/dL AST (5-31) U/L ALT (0-31) U/L Alkaline Phosphatase (39-117) U/L Total Creatine Kinase (26-140) U/L Total Protein (6.5-8.0) g/dL Albumin (3.5-5.0) g/dL Urine Color Urine Appearance Urine pH (5.0-9.0) Ur Specific [place] (1.005-1.025) Urine Protein (Neg-Trace) mg/dL Urine Glucose (UA) (Negative) mg/dL Urine Ketones (Negative) mg/dL Urine Blood (Negative) Urine Nitrite (Negative) Ur Leukocyte Esterase (Negative) Urine RBC (0-2) /HPF Urine WBC (0-5) /HPF Ur Squamous Epith Cells (0-2) /HPF Urine Bacteria (None Seen) Hyaline Casts (0-2) /LPF Urine Test NEGATIVE (NEGATIVE) Urine Opiates Screen Not Detected (Not Detect) Urine Fentanyl Screen Not Detected (Not Detect) Ur Barbiturates Screen Not Detected (Not Detect) Ur Phencyclidine Scrn Not Detected (Not Detect) Ur Amphetamines Screen Not Detected (Not Detect) U Benzodiazepines Scrn Not Detected (Not Detect) Urine Cocaine Screen Not Detected (Not Detect) U Marijuana (THC) Screen POSITIVE H (Not Detect) COVID-19 (ELEN) Negative (Negative) COVID-19 Clin Com See Note Critical Care Time Critical Care Time Critical Care Time: Yes Total Critical Care Time: 35 Attestation: The patient was critically ill with a high probability of imminent or life threatening deterioration. I spent greater than 40 minutes of discontinuous time evaluating the patient,delivering critical care at the bedside, discussing and evaluating pertinent data with consultants. Critical care time does not include time spent performing separately billable procedures or teaching. Total time spent performing critical care was 35 minutes. Discharge Plan Discharge Clinical Impression: Adverse reaction to drug Patient Disposition: Home, Self-Care Instructions: Panic Disorder (ED) Additional Instructions: Your symptoms not very clear likely panic attacks/medication side effects Continue medications hold Lyrica, talk to your psychiatrist Prescriptions: No Action norethindrone ac-eth estradiol [Loestrin 12/16 (21)] 1-20 mg-mcg tablet 1 tab PO DAILY Qty: 63 1RF sumatriptan succinate 50 mg tablet 50 mg PO Q2-4H PRN (Reason: migraine headache) Qty: 14 0RF Rx Instructions: do not exceed 4 doses per 24 hrs buspirone 30 mg tablet 30 mg PO BID lamotrigine 200 mg tablet 200 mg PO BEDTIME quetiapine 300 mg tablet extended release 24 hr 300 mg PO BEDTIME propranolol 10 mg tablet 10 mg PO BID baclofen 5 mg tablet 5 mg PO BID PRN (Reason: muscle spasm) Qty: 10 0RF hydroxyzine HCl 25 mg tablet 25 mg PO BID PRN pregabalin 25 mg capsule 25 mg PO BID Qty: 60 1RF Interventions: ED Discharge Assessment Last Done: 07/01/23 03:21 Discharge Date/Time: 07/01/23 03:21
[2023-06-30 20:57] VITALS: BP 134/84; PULSE 131; RESP 18; O2SAT 98; BMI 23.8
--- NOTE | 2023-06-30 21:08 | ECG_ITS ---
Test Reason : CHEST PAIN Blood Pressure : / mmHG Vent. Rate : 101 BPM Atrial Rate : 101 BPM P-R Int : 138 ms QRS Dur : 070 ms QT Int : 312 ms P-R-T Axes : 056 042 034 degrees QTc Int : 404 ms Sinus tachycardia Otherwise normal ECG When compared with ECG of 10-SEP-2019 22:54, Nonspecific ST and T wave abnormality improved Referred By: Parish Short Electronically Signed By:CYNTHIA GONZALEZ
[2023-06-30] MEDS: LORazepam 1 MG TABLET 2 MG PO (21:19)
[2023-06-30] MEDS: 0.9 % Sodium Chloride 1,000 ML 999 ML IV ×2 (21:21→23:00)
--- NOTE | 2023-06-30 21:32 | PC.NURSE ---
pt begining to appear better, less frequent shaking/twitching, less diaphoretic. remains alert, no nystigmus. no sz activity. parents at bedside.
[2023-06-30 21:45] LABS: MANUAL DIFF FLAG NO
[2023-06-30 21:47] LABS: Basophils Percent Auto 0.2 % (0-2); Hematocrit 42.3 % (37.0-47.0); Hemoglobin 14.8 g/dl (12.0-16.0); Imm Gran Abs Auto 0.05 X10*3/uL (0.00-0.03); Imm Gran Pct Auto 0.4 % (0.0-0.4); Lymphocytes Absolute Auto 3.4 X10*3/uL (1.2-4.9); Lymphocytes Percent Auto 30.4 % (20-40); Mean Corpuscular Hemoglobin 29.8 pg (27.0-33.0); Mean Corpuscular Volume 85.3 fL (80.0-98.0); Mean Platelet Volume 10.2 fL (9.4-12.3); Monocytes Absolute Auto 0.5 X10*3/uL (0.1-1.2); Monocytes Percent Auto 4.2 % (2-11); Neutrophils Absolute Auto 7.3 x10*3/uL (2.0-8.3); Neutrophils Percent Auto 64.8 % (45-73); Platelet Count 264 X10*3/uL (160-400); Red Blood Count 4.96 X10*6/uL (4.20-5.50); Red Cell Distribution Width 11.7 % (11.0-16.0); White Blood Count 11.2 X10*3/uL (4.8-10.8)
--- NOTE | 2023-06-30 22:00 | PC.NURSE ---
continues to improve. no longer diaphoretic. no shaking. skin pwd. ST on monitor 110.
[2023-06-30 22:16] LABS: Alanine Aminotransferase 10 U/L (0-31); Albumin Level 4.2 g/dL (3.5-5.0); Alkaline Phosphatase 40 U/L (39-117); Anion Gap 20 (12-20); Aspartate Amino Transferase 12 U/L (5-31); Bilirubin Total 0.5 mg/dL (0.0-1.0); Blood Urea Nitrogen 8 mg/dL (9-16); Calcium 9.5 mg/dL (8.4-10.2); Carbon Dioxide 19 mmol/L (22-29); Chloride 105 mmol/L (96-108); Estimated Glomerular Filt Rate > 60; Glucose Random 71 mg/dL (60-115); Potassium 3.6 mmol/L (3.3-5.1); Sodium 140 mmol/L (135-145); Total Protein 7.4 g/dL (6.5-8.0)
[2023-06-30] MEDS: diphenhydrAMINE HCL 50 MG/ML VIAL 25 MG IVPUSH (22:41)
[2023-06-30] MEDS: LORazepam 2 MG/ML VIAL 1 MG IVPUSH (22:41)
[2023-06-30 22:50] VITALS: BP 122/79; PULSE 130; RESP 18; O2SAT 99
[2023-06-30 23:18] LABS: Appearance Urine Clear; Color Urine Yellow; Glucose Urine UA Negative (Negative); Leukocyte Esterase Urine Small (1+) (Negative); Nitrite Urine Negative (Negative); Specific Gravity - Urine 1.015 (1.005-1.025); UMIC TRIGGER UACC YES; UPreg QC Valid YES; Urine Blood Negative (Negative); Urine Ketones 40 mg/dL (Negative); Urine Pregnancy NEGATIVE (NEGATIVE); Urine Protein Negative (Neg-Trace)
[2023-06-30 23:24] LABS: Amphetamine Screen Urine Not Detected (Not Detect); Barbiturates, Urine Not Detected (Not Detect); Benzodiazepines Screen Urine Not Detected (Not Detect); Cannabinoid Screen Urine POSITIVE (Not Detect); Cocaine Screen Urine Not Detected (Not Detect); Fentanyl, urine Not Detected (Not Detect); Opiate Screen Urine Not Detected (Not Detect); Phencyclidine Screen Urine Not Detected (Not Detect)
[2023-06-30 23:42] LABS: Bacteria Urine Trace (None Seen); Hyaline Casts Urine 0-2 /LPF (0-2); RBC Urine 0-2 /HPF (0-2); UACC Culture Trigger YES; WBC Urine 0-5 /HPF (0-5)
[2023-06-30 23:51] VITALS: BP 134/87; PULSE 140
[2023-06-30 23:52] VITALS: BP 133/93; PULSE 129; PULSE 160
[2023-07-01] MEDS: 0.9 % Sodium Chloride 1,000 ML 999 ML IV (00:13)
[2023-07-01 00:39] LABS: COVID-19 Test Negative (Negative); IDNOW Serial# 6674DD1D
[2023-07-01] MEDS: Metoprolol Tartrate 25 MG TABLET PO (01:11)
[2023-07-01 01:30] VITALS: BP 100/59; PULSE 114; RESP 19; TEMP 37.1; O2SAT 98
[2023-07-01] MEDS: LORazepam 1 MG TABLET PO (03:13)
[2023-07-01 03:20] VITALS: BP 111/64; PULSE 81; RESP 12; TEMP 36.7; O2SAT 98
== END 2023-07-01 03:21 | disposition home or self-care (01) ==
PROVIDERS: Registered Nurse Emergency; Emergency Provider Internal Medicine; PCP Nurse Practitioner Family
DX: R45.1 Restlessness and agitation (principal); F41.9 Anxiety disorder, unspecified; R00.0 Tachycardia, unspecified; T42.6X5A Adverse effect of other antiepileptic and sedative-hypnotic drugs, initial encounter; Y92.019 Unspecified place in single-family (private) house as the place of occurrence of the external cause; Z20.822 Contact with and (suspected) exposure to COVID-19; Z79.899 Other long term (current) drug therapy
CPT/HCPCS: 36415; 80053; 80307; 81001; 81025; 82550; 85025; 87086; 87635; 93005; 96361; 96374; 96375; 99284; 99285; J1200; J2060

== ENCOUNTER → 2023-06-30 21:08 | Outpatient (BNV) | payer BC, SELFPAY | PROVIDERS: Emergency Provider Internal Medicine; PCP Nurse Practitioner Family; Visit Provider Internal Medicine | DX: R00.0 Tachycardia, unspecified (principal) | CPT/HCPCS: 93010 ==

== ENCOUNTER 2023-07-03 22:48 | Emergency (ER) | payer BC, SELFPAY ==
--- NOTE | 2023-07-03 | ECG_ITS ---
Test Reason : CP Blood Pressure : / mmHG Vent. Rate : 124 BPM Atrial Rate : 124 BPM P-R Int : 148 ms QRS Dur : 070 ms QT Int : 392 ms P-R-T Axes : 064 048 029 degrees QTc Int : 563 ms Sinus tachycardia Nonspecific T wave changes Abnormal ECG When compared with ECG of 30-JUN-2023 21:27, Nonspecific T wave changes present Referred By: Generic ED Physician Electronically Signed By:Kal Hebert
[2023-07-03 23:00] VITALS: BP 132/89; PULSE 124; RESP 16; TEMP 37.2; O2SAT 99; BMI 23.8
--- NOTE | 2023-07-04 01:14 | ED.GENADULT ---
HPI - General Adult General Chief complaint: General Medical Stated complaint: heartbeat too fast/nausea Time Seen by Provider: 07/04/23 00:40 Source: patient, family (Patient's mother), RN notes reviewed and old records reviewed Mode of arrival: ambulatory Limitations: no limitations History of Present Illness HPI narrative: 23-year-old female past medical history significant for fibromyalgia, chronic pain, congenital adrenal hyperplasia, migraines, bipolar 2 disorder presents for evaluation of ?tachycardia and nausea. ? Patient reports that she was seen here on Monday for the same complaint. She reports intermittent tremors but currently is on experience these. Patient reports that a few days before her visit on Monday she was started on Lyrica 25 mg for her chronic pain She did not feel that is seem to help her pain When she was seen in the ER, she was told to stop the Lyrica her as it could be a cause of her symptoms The patient also admits that she saw her chiropractor on Monday and was given electrical stimulator She states it is not exactly a tens unit but ?stronger than a tens unit. ? She states that both times she slipped in the ER she use this unit just before coming in Patient reports that today her heart rate was as high as 160 while walking and she felt nauseous She reports that she is due to see endocrinology and Neurology by the end of the week Patient denies any other medication changes She is also on Seroquel, buspirone and Lamictal Related Data Home Medications Medication Instructions Recorded Confirmed buspirone 30 mg tablet 30 mg PO BID 02/14/22 06/26/23 lamotrigine 200 mg tablet 200 mg PO BEDTIME 02/14/22 06/26/23 quetiapine 300 mg tablet,extended 300 mg PO BEDTIME 02/14/22 06/26/23 release 24 hr propranolol 10 mg tablet 10 mg PO BID 06/07/23 06/26/23 hydroxyzine HCl 25 mg tablet 25 mg PO BID PRN 06/26/23 06/26/23 Previous Rx's Medication Instructions Recorded norethindrone acetate 1 mg-ethinyl 1 tab PO DAILY #63 tabs 03/16/23 estradiol 20 mcg tablet (Loestrin) sumatriptan succinate 50 mg tablet 50 mg PO Q2-4H PRN migraine 03/16/23 headache #14 tabs baclofen 5 mg tablet 5 mg PO BID PRN muscle spasm #10 06/07/23 tabs pregabalin 25 mg capsule 25 mg PO BID #60 caps 06/26/23 metoprolol succinate 25 mg 12.5 mg PO DAILY #30 tabs 07/04/23 tablet,extended release 24 hr Allergies Allergy/AdvReac Type Severity Reaction Status Date / Time No Known Allergies Allergy Verified 06/30/23 20:57 Review of Systems Constitutional: Constitutional: Reports body ache(s), Denies chills, Reports fatigue, Denies malaise and Reports weakness Eyes: Eyes: Denies blurry vision Cardiovascular: Cardiovascular: Denies chest pain, Reports rapid heart rate, Denies leg edema, Reports lightheadedness and Reports dyspnea on exertion Respiratory: Respiratory: Reports dyspnea on exertion Gastrointestinal: Gastrointestinal: Denies abdominal pain, Denies nausea and Denies vomiting Musculoskeletal: Musculoskeletal: Reports muscle cramps Integumentary/Breasts: Skin/Breast: Denies rash Neurologic: Reports tremor(s) and Reports weakness Psychiatric: Psychiatric: Reports anxiety Endocrine: Endocrine: Reports fatigue PMFSH Past Medical History Medical History COVID-19 virus infection (~12/2021) Encounter to establish care Surgical History No pertinent past surgical history Family History Family History Mother Migraines Father IBS (irritable bowel syndrome) Maternal Aunt Diabetes type I Maternal Grandmother Hx of thyroidectomy Goiter Social History Social History Household Members: Family Housing: House Alcohol intake: current Alcohol intake frequency: holidays/special occasions only Patient Tobacco Use Status: Never used Tobacco e-Cigarette/Vaping Use: Never Used Second Hand Smoke Exposure: No Advance Directives: No Advance Directives Information Provided: Yes service: No Current occupational status: employed 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 Cognitive needs: No Hearing needs: No Vision needs: Yes (glasses) Physical Exam ED Vital Signs: Vital Signs - 24 hr 07/03/23 23:00 07/04/23 02:37 07/04/23 02:38 Temperature 98.9 F Pulse Rate 124 H 98 98 Respiratory Rate 16 20 Blood Pressure 132/89 111/79 111/79 Pulse Oximetry 99 97 Oxygen Delivery Method Room Air Room Air 07/04/23 02:37 07/04/23 02:37 Temperature Pulse Rate 120 H 130 H Respiratory Rate Blood Pressure 134/87 122/80 Pulse Oximetry Oxygen Delivery Method BMI result Body Mass Index 23.8 Const General: healthy appearing, comfortable, no acute distress, alert and awake Nutritional Appearance: well nourished Orientation/consciousness: patient oriented x3 HENMT Head: Yes normocephalic and Yes atraumatic Eyes Eyelids: Yes eyelids normal Conjunctivae: conjunctivae normal Sclerae: sclerae normal Corneas: corneas normal Pupils: Equal, round and reactive pupils present EOM: EOMs intact bilaterally Neck Neck: Yes full ROM Resp Effort & Inspection: normal respiratory effort, able to speak in complete sentences, no audible wheezes and not labored Auscultation: clear to auscultation bilaterally Cardio Rate: tachycardic Rhythm: regular rhythm Skin General skin exam: no rashes or lesions noted and elasticity normal Neuro Other: No abnormal extremity movements or fasciculations/tremors General: patient oriented x3 Cranial nerves: Yes Equal, round and reactive pupils present and Yes Bilaterally intact EOM present Cognition (Neuro): normal cognition Extrem Other: Moving all extremities well without any obvious deformities Course Reevaluation(s) Reevaluation #1: Patient's workup largely unremarkable, D-dimer negative, TSH elevated to 5.49, free T4 is pending. Patient's heart rate improved to 90s at rest after receiving metoprolol 25 mg p.o. and Ativan 1 mg IV Time: 02:34 Reevaluation #2: Patient's orthostatics were significant for an increase in heart rate consistent with POTS, but not a significant change in the blood pressure to suggest dehydration. I discussed with the patient and her mother, discussed possible admission. The patient feels better after receiving metoprolol and Ativan. We will trial discharge with a low dose of metoprolol daily and a Cardiology referral. Time: 02:49 Medications Administered Discontinued Medications Generic Name Dose Route Start Last Admin Trade Name Freq PRN Reason Stop Dose Admin Sodium Chloride 1,000 mls @ 999 mls/hr 07/04/23 01:15 07/04/23 02:10 Ns IV 07/04/23 02:15 999 mls/hr .Q1H1M YANE Administration Lorazepam 1 mg 07/04/23 01:03 07/04/23 02:09 Lorazepam 2 Mg/Ml Vial IVPUSH 07/04/23 01:04 1 mg STAT STA Administration Metoprolol Tartrate 25 mg 07/04/23 01:05 07/04/23 02:10 Metoprolol Tartrate 25 Mg Tablet PO 07/04/23 01:06 25 mg ONCE ONE Administration Protocol Medical Decision Making Medical Decision Making MDM Narrative: 23-year-old female presents for evaluation of nausea and tachycardia. She is on control but has no other risk factors for PE. Will get a D-dimer and assess need for CT angiography. Patient reports a recent ultrasound of her thyroid which was normal, her T is was last checked in March 16, 2023 and was normal. Patient's symptoms are consistent with postural orthostatic tachycardia. Patient given IV fluids, Ativan 1 mg IV and oral beta-camilo with metoprolol 25 mg. Workup pending at this time. Will also check orthostatics Differential Diagnosis Differential Diagnoses: The differential diagnosis associated with the presentation includes Anxiety Pheochromocytoma PE Serotonin syndrome Postural orthostatic tachycardic syndrome Autonomic dysfunction Substance abuse Hyperthyroidism Orthostasis Admission/Observation Consideration of admission/observation: Escalation of care including admission/observation considered Patient's 2nd visit for significant tachycardia. However the patient had a reassuring workup Lab Data 07/04/23 01:49 07/04/23 01:49 Labs: Lab Results 07/04/23 07/04/23 07/04/23 Range/Units 01:49 01:49 01:49 WBC 10.2 (4.8-10.8) X10*3/uL RBC 5.00 (4.20-5.50) X10*6/uL Hgb 15.0 (12.0-16.0) g/dl Hct 42.3 (37.0-47.0) % MCV 84.6 (80.0-98.0) fL MCH 30.0 (27.0-33.0) pg MCHC 35.5 H (31.0-35.0) g/dl RDW 11.7 (11.0-16.0) % Plt Count 274 (160-400) X10*3/uL MPV 10.2 (9.4-12.3) fL Absolute Nucleated RBC 0.000 (0.0-0.012) X10*3/uL Nucleated RBC % (auto) 0.0 (0.0-0.2) /100WBC D-Dimer High Sensitivty NG/ML Sodium 139 (135-145) mmol/L Potassium 3.5 (3.3-5.1) mmol/L Chloride 105 (96-108) mmol/L Carbon Dioxide 23 (22-29) mmol/L Anion Gap 15 (12-20) BUN 7 L (9-16) mg/dL Creatinine 0.69 (0.5-1.4) mg/dL Estim Creat Clear Calc 102.0 Estimated GFR > 60 Random Glucose 81 (60-115) mg/dL Calcium 9.6 (8.4-10.2) mg/dL Total Bilirubin 0.4 (0.0-1.0) mg/dL AST 14 (5-31) U/L ALT 13 (0-31) U/L Alkaline Phosphatase 43 (39-117) U/L Troponin I High Sens < 2.7 (<3.5-17.0) ng/L Total Protein 7.7 (6.5-8.0) g/dL Albumin 4.4 (3.5-5.0) g/dL TSH (0.32-4.0) uIU/mL 07/04/23 07/04/23 Range/Units 01:49 01:49 WBC (4.8-10.8) X10*3/uL RBC (4.20-5.50) X10*6/uL Hgb (12.0-16.0) g/dl Hct (37.0-47.0) % MCV (80.0-98.0) fL MCH (27.0-33.0) pg MCHC (31.0-35.0) g/dl RDW (11.0-16.0) % Plt Count (160-400) X10*3/uL MPV (9.4-12.3) fL Absolute Nucleated RBC (0.0-0.012) X10*3/uL Nucleated RBC % (auto) (0.0-0.2) /100WBC D-Dimer High Sensitivty < 150 NG/ML Sodium (135-145) mmol/L Potassium (3.3-5.1) mmol/L Chloride (96-108) mmol/L Carbon Dioxide (22-29) mmol/L Anion Gap (12-20) BUN (9-16) mg/dL Creatinine (0.5-1.4) mg/dL Estim Creat Clear Calc Estimated GFR Random Glucose (60-115) mg/dL Calcium (8.4-10.2) mg/dL Total Bilirubin (0.0-1.0) mg/dL AST (5-31) U/L ALT (0-31) U/L Alkaline Phosphatase (39-117) U/L Troponin I High Sens (<3.5-17.0) ng/L Total Protein (6.5-8.0) g/dL Albumin (3.5-5.0) g/dL TSH 5.49 H (0.32-4.0) uIU/mL Independent Interpretation I performed an independent interpretation of an: EKG (Sinus tachycardia with a rate of 124 beats per minute.) Tests considered The following testing was considered but not selected: Considered imaging of the abdomen to evaluate for adrenal mass but the patient reports that she sees endocrinology later this week may follow-up at this. Discharge Plan Discharge Clinical Impression: Tachycardia, Nausea Patient Disposition: Home, Self-Care Instructions: Tachycardia (ED) Additional Instructions: Your workup in the emergency department today was reassuring. Your symptoms may be related to POTS or positional orthostatic tachycardia syndrome You should follow-up with cardiology regarding this and take metoprolol 12.5 mg daily Given your history of adrenal hyperplasia, you may discuss with your stone setter metal optical frames a possibility of a pheochromocytoma which could explain your symptoms Follow-up with your primary doctor Return for new or worsening symptoms Prescriptions: New metoprolol succinate 25 mg tablet extended release 24 hr 12.5 mg PO DAILY Qty: 30 0RF No Action norethindrone ac-eth estradiol [Loestrin 12/16 ()] 1-20 mg-mcg tablet 1 tab PO DAILY Qty: 63 1RF sumatriptan succinate 50 mg tablet 50 mg PO Q2-4H PRN (Reason: migraine headache) Qty: 14 0RF Rx Instructions: do not exceed 4 doses per 24 hrs buspirone 30 mg tablet 30 mg PO BID lamotrigine 200 mg tablet 200 mg PO BEDTIME quetiapine 300 mg tablet extended release 24 hr 300 mg PO BEDTIME propranolol 10 mg tablet 10 mg PO BID baclofen 5 mg tablet 5 mg PO BID PRN (Reason: muscle spasm) Qty: 10 0RF hydroxyzine HCl 25 mg tablet 25 mg PO BID PRN pregabalin 25 mg capsule 25 mg PO BID Qty: 60 1RF
[2023-07-04 01:56] LABS: Hematocrit 42.3 % (37.0-47.0); Mean Corpuscular HGB Conc 35.5 g/dl (31.0-35.0); Mean Corpuscular Volume 84.6 fL (80.0-98.0); Mean Platelet Volume 10.2 fL (9.4-12.3); Platelet Count 274 X10*3/uL (160-400); Red Cell Distribution Width 11.7 % (11.0-16.0); White Blood Count 10.2 X10*3/uL (4.8-10.8)
[2023-07-04 02:06] LABS: D Dimer High Sensitivity < 150 NG/ML
[2023-07-04] MEDS: LORazepam 2 MG/ML VIAL 1 MG IVPUSH (02:09)
[2023-07-04 02:10] LABS: Alanine Aminotransferase 13 U/L (0-31); Albumin Level 4.4 g/dL (3.5-5.0); Alkaline Phosphatase 43 U/L (39-117); Anion Gap 15 (12-20); Aspartate Amino Transferase 14 U/L (5-31); Bilirubin Total 0.4 mg/dL (0.0-1.0); Blood Urea Nitrogen 7 mg/dL (9-16); Calcium 9.6 mg/dL (8.4-10.2); Carbon Dioxide 23 mmol/L (22-29); Chloride 105 mmol/L (96-108); Estimated Glomerular Filt Rate > 60; Glucose Random 81 mg/dL (60-115); Potassium 3.5 mmol/L (3.3-5.1); Sodium 139 mmol/L (135-145); Total Protein 7.7 g/dL (6.5-8.0)
[2023-07-04] MEDS: Metoprolol Tartrate 25 MG TABLET PO (02:10)
[2023-07-04] MEDS: 0.9 % Sodium Chloride 1,000 ML 999 ML IV (02:10)
[2023-07-04 02:23] LABS: Troponin-I High Sensitivity < 2.7 ng/L (<3.5-17.0)
[2023-07-04 02:29] LABS: TSH reflex Free T4 5.49 uIU/mL (0.32-4.0)
[2023-07-04 02:37] VITALS: BP 111/79; BP 122/80; BP 134/87; PULSE 120; PULSE 130; PULSE 98
[2023-07-04 02:38] VITALS: BP 111/79; PULSE 98; RESP 20; O2SAT 97
[2023-07-04 03:03] LABS: COVID-19 Test Negative (Negative); IDNOW Serial# 08D9AD1C
[2023-07-04 03:21] LABS: Free T4 (Free Thyroxine) 1.17 ng/dL (0.71-1.85)
== END 2023-07-04 03:57 | disposition home or self-care (01) ==
PROVIDERS: Physician Assistant; Emergency Provider Internal Medicine; PCP Nurse Practitioner Family
DX: R00.0 Tachycardia, unspecified (principal); R11.2 Nausea with vomiting, unspecified; M79.10 Myalgia, unspecified site; Z20.822 Contact with and (suspected) exposure to COVID-19; Z20.828 Contact with and (suspected) exposure to other viral communicable diseases; Z79.899 Other long term (current) drug therapy
CPT/HCPCS: 36415; 80053; 84439; 84443; 84484; 85027; 85379; 87635; 93005; 96374; 99284; J2060

== ENCOUNTER → 2023-07-03 22:57 | Outpatient (BNV) | payer BC, SELFPAY | PROVIDERS: Emergency Provider Internal Medicine; PCP Nurse Practitioner Family; Visit Provider Internal Medicine Cardiovascular Disease | DX: R00.0 Tachycardia, unspecified (principal) | CPT/HCPCS: 93010 ==

== ENCOUNTER 2023-07-18 10:02 | Outpatient (REF) | payer BC, SELFPAY ==
--- NOTE | ~2023-07-18 | XR_ITS ---
EXAMINATION: XR CERVICAL SPINE CLINICAL INFORMATION: Cervicalgia COMPARISON: None available. TECHNIQUE: 5 views of the cervical spine including oblique views were obtained. FINDINGS: Vertebral bodies are well aligned and intervertebral discs are preserved. There is straightening of cervical lordosis most likely due to muscle spasm. Neuroforamina are not encroached. Soft tissues are normal. XR/XR cervical spine 4V IMPRESSION: Muscle spasm with straightening of cervical lordosis
== END 2023-07-18 10:03 | disposition home or self-care (01) ==
LOC: HO.XRAY 10:02
PROVIDERS: PCP Nurse Practitioner Family; Visit Provider Nurse Practitioner Family
DX: M54.2 Cervicalgia (principal); M79.7 Fibromyalgia; M41.9 Scoliosis, unspecified; M54.9 Dorsalgia, unspecified; R53.83 Other fatigue
CPT/HCPCS: 72050

== ENCOUNTER 2023-07-18 10:02 | Outpatient (AMB) | payer BC, SELFPAY ==
--- NOTE | 2023-07-18 10:07 | MHC.OFFVIS ---
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 She is accompanied by her mom. Patient denies past or recent trauma, injury or falls. Reports chronic pain since age 15 and most recently worsening pain with weakness and function declining since returning from [facility] vacation in January-February. Any physical activity or movements cause her increase pain and fatigue. She follows multiple providers to evaluate her symptoms, including [facility] [place], pending Neurosurgery referral for scoliosis, [facility] with pending lab work, pending Pelvic and Thoracic MRI on 08/07/23, [facility] [place] 07/[place]/23. On exam, her neuromotor functions, spinal movements are normal and she reports bowel/bladder habits are normal as well. Patient does present with multiple localized trigger points of upper and lower extremities and torso but has remained full engaged during examination. Pain affects her daily activities and functioning, sleep, mood, social interactions and quality of life. Patient reports frequent dizziness episodes with tremors, sweating during day and night, shortness of breaths with prolonged walking or climbing stairs, shaky legs sensations with ascending stairs. 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 Patient and mom denies being tested for pheochromocytoma but note that there pending lab work from other providers. Patient has been participating in physcial therapy and acupunture and is interested to trial Virtual Reality PT for chronic pain and fibromyalgia as well as Aqua therapy through a local [facility] setting. Denies previous chiropractic manipulation, massage, TENS unit, or CBT therapies. Location Widespread body pain, neck, upper and lower back, arms, legs Duration Chronic pain since 15, progressively worsening since February 2023 Characteristics of symptom or complaint Throbbing, sharp, pulsing, pressure, shocking, numbness, tingling, spasming Aggravating or associated factors Any movement, walking, standing, moving, ice or cold weather Relieving factors Rest, heat therapy, Baclofen, Lyrica, duloxetine Treatment PT, acupuncture PFSH Medical History COVID-19 virus infection (~12/2021) Encounter to establish care Surgical History No pertinent past surgical history Family History Mother Migraines Father IBS (irritable bowel syndrome) Maternal Aunt Diabetes type I Maternal Grandmother Hx of thyroidectomy Goiter Social History Household Members: Family Housing: House Alcohol intake: never Patient Tobacco Use Status: Never used Tobacco e-Cigarette/Vaping Use: Never Used Second Hand Smoke Exposure: No service: No Current occupational status: employed 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 Alert and oriented. Mood and affect appropriate. Fully engaged in exam. Follows and participates in conversation appropriately. Respiratory effort is unlabored. Skin pallor noted. No shortness of breath. Able to transition from sit to stand unassisted. Ambulates with bilaterally normal heel strike and toe off. Back/Spine/Pelvis Other: Patient is able to walk and stand on heels and tip toes with no difficulties demonstrating good motor tone. No limping. Can flex forward to 60-70 degrees and extend to 10-15 degrees before experiencing thoraco-lumbar pain. Demonstrates 5/5 strength of quadriceps bilaterally as well as flexion/dorsiflexion of bilateral feet against resistance. 2+ pedal pulses bilaterally. Seated straight leg rise with dorsiflexion negative bilaterally. +2 patellar and achilles reflexes bilaterally. Facet loading test positive bilaterally. Alannah sign, Blane?s, Gaenslen, Pelvic compression and Stinchfield tests are negative bilaterally. No groin pain with I/E hip rotations. Multiple 16/16 tender points upper and lower extremities bilaterally. Cervical Spine: cervical ROM normal, loss of normal cervical lordosis, cervical muscular tenderness, pain with cervical ROM, No Cervical spine scars present, cervical spasm, No Cervical spine tenderness and No step off deformity Thoracic/Lumbar Spine: thoracic and lumbar spine normal to inspection, No Thoracic/lumbar spine scar(s), Lasegue's sign negative, straight leg raise negative bilaterally, pain with thoraco-lumbar ROM, paraspinal muscle tenderness, Thoracic/lumbar scoliosis, No thoracic spinal tenderness and No lumbar spinal tenderness Sacroiliac joints: bilaterally (Mild lateral hip pain and low back pain with Blane's and SONAL testing) tender to palpation Results Reviewed Results Reviewed: XR LUMBOSACRAL SPINE WITH OBLIQUES 06/07/23 FINDINGS: The vertebral bodies and posterior elements are normal. The disc spaces are preserved and the vertebral alignment is normal. The paraspinal soft tissues are normal. IMPRESSION: Unremarkable examination. XR THORACIC SPINE 06/07/23 FINDINGS: Minor endplate spurring particularly upper and mid dorsal spine. Minor scoliosis convex left. Vertebral heights and disc spaces are preserved. No paraspinal soft tissue lesion. IMPRESSION: Minor degenerative disc disease. No fracture. Assessment & Plan Assessment & Plan (1) Fibromyalgia: Code(s): M79.7 - Fibromyalgia (2) Neck pain: Code(s): M54.2 - Cervicalgia (3) Scoliosis: Code(s): M41.9 - Scoliosis, unspecified (4) Back pain: Code(s): M54.9 - Dorsalgia, unspecified (5) Fatigue: Code(s): R53.83 - Other fatigue Plan 1. Cervical spine imaging to assess degree of degenerative changes, any subluxation, listhesis or pars defects. 2. Patient is not candidate for opioid program and family and patient were informed that our office does not provide Opioid prescribing at this time. Recommend CBT therapy-patient will reach out to her current psychiatrist and mental therapist to see if they can offer this to her, if not we will place a referral. Patient was encouraged to stay physically active as tolerated, maintain good posture, sleep hygiene, adequate hydration, heealthy food choices and relaxation techniques. Follow up with neuro-endocrinology and cardiology as scheduled. Consider testing for pheochromocytoma. 3. Recommend Virtual Reality PT and Aqua therapy, scripts provided. Follow-up in 1-2 months to see response to VR physical therapy, if no response to physical therapy will consider further interventional strategy. All questions and concerns have been answered and patient agreed with the plan. Follow up for xray results and sooner as needed. Orders: Orders XR cervical spine 4V 07/18/23 M54.2 - Cervicalgia, R52 - Pain, unspecified PT Evaluation and Treatment 07/18/23 M79.7 - Fibromyalgia, R52 - Pain, unspecified Coding Level of Care Code New Pt Level 4 (45173) Diagnoses Fibromyalgia M79.7 Neck pain M54.2 Scoliosis M41.9 Back pain M54.9 Fatigue R53.83
[2023-07-18 10:15] VITALS: BP 134/78; PULSE 114; O2SAT 98; BMI 25.6
== END 2023-07-18 11:01 | disposition home or self-care (01) ==
PROVIDERS: PCP Nurse Practitioner Family; Visit Provider Nurse Practitioner Family
DX: M79.7 Fibromyalgia (principal); M54.2 Cervicalgia; M41.9 Scoliosis, unspecified; M54.9 Dorsalgia, unspecified; R53.83 Other fatigue
CPT/HCPCS: 99204

== ENCOUNTER 2023-07-27 08:27 | Outpatient (AMB) | payer BC, SELFPAY ==
[2023-07-27 08:32] VITALS: BP 100/70; PULSE 77; BMI 23.4
--- NOTE | 2023-07-27 08:32 | A.OFFVIS_ITS ---
Intake Vital Signs 07/27/23 08:32 Height 5 ft 2 in Weight 127 lb 13.89 oz BMI 23.4 BP 100/70 Blood Pressure Location Lt brachial Position Sitting Pulse 77 Intake Visit Reasons: [facility] [place] [facility] [place]/ pt electively requesting Intake Note: [facility] [place] [facility] folow up/pt electively request has heart palpitations pt felling dizziness and chest pain Allergies pregabalin [From Lyrica] Adverse Reaction (Unknown, Verified 07/27/23 08:44) tremors Medication List - Last Reconciled 07/27/23 by GUCCI Wharton baclofen 5 mg PO BID PRN buspirone 30 mg PO BID hydroxyzine HCl 25 mg PO BID PRN lamotrigine 200 mg PO BEDTIME norethindrone ac-eth estradiol 1-20 mg-mcg (Loestrin) 1 tab PO DAILY omega-3 fatty acids 500 mg PO DAILY quetiapine ER 300 mg PO BEDTIME sumatriptan succinate 50 mg PO Q2-4H PRN vitamin B complex 1 cap PO DAILY HPI [facility] [place]/ pt electively requesting HPI Details Dolly is a 23-year-old female with past medical history fibromyalgia who is being seen in the emergency room on 3 recent occasions with reports of rapid heartbeat, sinus tachycardia. Without significant cardiac findings. Her last ER visit was on 07/25/2023 at [facility] showing heart rates 120 to 150s at rest. D-dimer normal, troponin undetectable, mild hypokalemia, TSH mildly elevated with normal free T4. Diagnosis of POTS considered. Today she presents for cardiac consultation and reports that for several months she has been having episodes of elevated heart rate. When she is at rest she describes her heart rate as being normal most of the time and then with any physical activity her heart rate jumps up. When her heart is going fast she will get some nausea and lightheadedness. She has had no presyncope, syncope, falls. She has had sustained rapid heart rates which have prompted ER visits. No shortness of breath, PND, orthopnea or edema. She is experiencing full body pain and has a tentative diagnosis of fibromyalgia. She does describe pain that wraps around her ribcage, nonexertional. She tells me she is still undergoing evaluation for this problem. She is currently on FMLA as she is unable to work due to symptoms. She has not been taking the metoprolol daily. She uses it as needed for rapid heartbeats. Mother is present. She describes that several months ago her daughter was in [place] and had developed a illness of unknown origin. Since that time her heart rate issues have occurred. Mother present. Nonsmoker, rare alcohol use. Does not drink caffeinated beverages. Feels that she can hydrate better. No known family history of tachycardia/arrhythmia/ POTS. Grandfather had history of heart disease. 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 Cognitive needs: No Hearing needs: No Vision needs: Yes (glasses) Review of Systems Const Details: Generalized body pain, intermittent nausea in the setting of tachycardia, sedentary All systems reviewed & are unremarkable except as noted in HPI and below ENT Denies dizziness Card Denies chest pain, Denies chest pain at rest, Denies chest pain with activity, Reports rapid heart rate, Denies pedal edema, Denies edema, Denies leg edema, Denies lightheadedness, Reports palpitations, Denies dyspnea, Denies dyspnea on exertion and Denies orthopnea Resp Denies cough, Denies dyspnea and Denies dyspnea on exertion GI Denies hematochezia and Denies change in stool character Musc Details: Muscle pain, pain that wraps around rib cage Denies abnormal gait, Denies limited range of motion, Denies muscle cramps, Denies muscle weakness, Denies numbness, Denies radiating pain into limb, Denies stiffness and Denies tingling Neuro Denies abnormal gait, Denies dizziness, Denies numbness and Denies tingling Endo Reports palpitations Physical Exam Vital Signs: Last Vital Signs Pulse 77 07/27/23 08:32 BP 100/70 07/27/23 08:32 BMI result Body Mass Index 23.4 Const General: cooperative, healthy appearing, comfortable and no acute distress Orientation/consciousness: patient oriented x3 Neck Neck: Yes normal visual inspection Resp Effort & Inspection: normal respiratory effort Auscultation: clear to auscultation bilaterally, no crackles, no rales, no rho nchi and no wheezes Cardio Jugular venous distension: no JVD Rate: regular rate Rhythm: regular rhythm Heart sounds: S1 normal heart sound present, S2 normal heart sound present, no gallops, no murmurs and no rubs Neuro General: patient oriented x3 Extrem General: Yes normal to inspection and No no pedal edema Psych Appearance: grossly normal Mental Status: mental status grossly normal Speech and movement: Normal speech and movement present Office Procedures EKG Details: Today, read by me, sinus rhythm with sinus arrhythmia, rate 77, QTC 414 milliseconds, TX 154 milliseconds QRS 78 milliseconds, no acute ST or T-wave abnormalities [id number], Complete Assessment & Plan Assessment & Plan (1) Sinus tachycardia: Code(s): R00.0 - Tachycardia, unspecified Plan: In recent months she has been having issues with tachycardia when doing activities and in an upright position. When heart is going fast she will feel nausea and lightheaded. ED evaluations without acute findings. Last EKG done as at [facility] on 07/25/2023 showed sinus tachycardia, normal TX, QRS, QTC intervals, no evidence of pre-excitation. TSH mildly elevated at 5, free T4 normal, D-dimer normal. EKG done today shows sinus rhythm with sinus arr hythmia, rate 77. She does not feel heart palpitations at present. Orthostatic vitals done showing sitting blood pressure 98/48, pulse rate 68, standing for 2 minutes blood pressure 98/48, pulse 88. She does not drink caffeinated beverages or excess chocolate. It is possible that she does have some degree of POTS. Inappropriate sinus tachycardia and normal sinus tachycardia related to anxiety versus deconditioning is also considered. Her max predicted heart rate for her age of 23 is 199. Discussed with her She tells me she does not require medication daily. Will change metoprolol to metoprolol tartrate 25 mg, take 1/2 or 1 tablet as needed for heart palpitations. Instructed on good hydration, use of compression stockings when upright as this may help to limit tachycardia. Will obtain a 5 day Holter monitor to evaluate for average rates, arrhythmias such as atrial tachycardia, SVT. Will check echocardiogram to assess for any structural heart disease. Will check a tilt-table test to evaluate for POTS. Need for each test reviewed with her. Cardiology follow-up when test results are available. She is agreeable to this plan (2) Nausea: Code(s): R11.0 - Nausea (3) Fibromyalgia: Code(s): M79.7 - Fibromyalgia (4) POTS (postural orthostatic tachycardia syndrome): Code(s): G90.A - Postural orthostatic tachycardia syndrome [POTS] Orders: Orders CA echo transthoracic complete Today R00.0 - Tachycardia, unspecified ECG 5 day holter monitor Today R00.0 - Tachycardia, unspecified, R11.0 - Nausea ECG Tilt Table Test Today G90.A - Postural orthostatic tachycardia syndrome [POTS], M79.7 - Fibromyalgia, R00.0 - Tachycardia, unspecified Medications: New metoprolol tartrate 1/2 - 1 tablet as needed once daily for heart palpitation 25 mg PO DAILY PRN 30 tabs 2RF Palpitation Coding Level of Care Code New Pt Level 4 (65335) Diagnoses Sinus tachycardia R00.0 Nausea R11.0 Fibromyalgia M79.7 POTS (postural orthostatic tachycardia syndrome) G90.A CPT Codes EKG - CPT: 94237-[id number], Complete ([id number]) Time Spent (min) 35 Comment Chart review, documentation, interview, assessment, orders
== END 2023-07-27 09:27 | disposition home or self-care (01) ==
PROVIDERS: PCP Nurse Practitioner Family; Referring Provider Nurse Practitioner Family; Visit Provider Nurse Practitioner Family
DX: R00.0 Tachycardia, unspecified (principal); R11.0 Nausea; M79.7 Fibromyalgia; G90.A Postural orthostatic tachycardia syndrome [POTS]
CPT/HCPCS: 93010; 99204

== ENCOUNTER → 2023-07-27 08:27 | Outpatient (BNVA) | payer BC, SELFPAY | PROVIDERS: PCP Nurse Practitioner Family; Referring Provider Nurse Practitioner Family; Visit Provider Nurse Practitioner Family | DX: R00.0 Tachycardia, unspecified (principal); R11.0 Nausea; G90.A Postural orthostatic tachycardia syndrome [POTS]; M79.7 Fibromyalgia | CPT/HCPCS: 93005 ==

== ENCOUNTER 2023-08-07 19:02 | Outpatient (REF) | payer BC, SELFPAY ==
--- NOTE | ~2023-08-07 | MR_ITS ---
EXAMINATION: MR THORACIC SPINE WITHOUT CONTRAST CLINICAL INFORMATION: Scoliosis, pain COMPARISON: None available. TECHNIQUE: MRI of the thoracic spine was obtained using routine sequences without contrast. FINDINGS: Mild leftward convexity of the thoracic spine. No significant spondylolisthesis. Normal vertebral body heights. No suspicious marrow signal or focal osseous lesion. No significant marrow edema. The intervertebral discs appear well-maintained in height and signal. There are several minimal thoracic disc protrusions which do not contribute to spinal canal stenosis. Small T11 and T12 endplate Schmorl's nodes. The thoracic spinal canal appears widely patent. Normal caliber and signal of the thoracic cord. The conus medullaris terminates at T12-L1. The visualized extraspinal soft tissues are unremarkable. MR/MR thoracic spine wo con IMPRESSION: Mild leftward convexity of the thoracic spine. Otherwise unremarkable MRI of the thoracic spine.
--- NOTE | ~2023-08-07 | MR_ITS ---
EXAMINATION: MR PELVIS WITHOUT CONTRAST CLINICAL INFORMATION: Back/sacroiliac joint/groin pain since February of 2023. Question sacroiliitis. COMPARISON: CT abdomen/pelvis dated 01/16/2012 and lumbar spine radiographs dated 06/07/2023. TECHNIQUE: Multisequence MR imaging of the pelvis was obtained without contrast on a high-field strength scanner. FINDINGS: BONE: Mild left sacroiliac joint space narrowing with tiny marginal osteophytes and minimal subchondral sclerosis. No sacroiliac periarticular edema or erosion. No joint effusion. No evidence of acute sacroiliitis. No stress reaction, fracture, or avascular necrosis. No marrow edema or evidence of acute osseous injury. No concerning lytic or blastic osseous lesion. Mild bilateral facet arthropathy within the visualized lower lumbar spine. The L4-L5 and L5-S1 intervertebral discs appear unremarkable without significant central canal or neuroforaminal stenosis. MUSCLES/TENDONS: No edema or measurable tear. No evidence of acute muscle or tendon injury. INTRAPELVIC STRUCTURES: Unremarkable. SOFT TISSUES: No soft tissue mass or fluid collection. Specifically, no mass or mass effect in the region of the neurovascular bundles. MR/MR pelvis wo con IMPRESSION: 1. Mild left sacroiliac joint osteoarthritis. No evidence of acute sacroiliitis. 2. No stress reaction, fracture, or avascular necrosis. 3. Mild bilateral facet arthropathy within the visualized lower lumbar spine.
== END 2023-08-07 19:03 | disposition home or self-care (01) ==
LOC: HO.MRI 19:02
PROVIDERS: PCP Nurse Practitioner Family; Visit Provider Nurse Practitioner Family
DX: M54.9 Dorsalgia, unspecified (principal); M41.9 Scoliosis, unspecified; R79.82 Elevated C-reactive protein (CRP)
CPT/HCPCS: 72146; 72195

== ENCOUNTER 2023-08-24 08:16 | Outpatient (AMB) | payer BC, SELFPAY ==
[2023-08-24 08:18] VITALS: BP 106/74; PULSE 109; TEMP 36.6; O2SAT 99; BMI 24.0
--- NOTE | 2023-08-24 08:18 | A.OFFVIS_ITS ---
Intake Vital Signs 08/24/23 08:18 Height 5 ft 2 in Weight 131 lb 6.328 oz BMI 24.0 BP 106/74 Blood Pressure Location Rt brachial Position Sitting Pulse 109 H Pulse Source Pulse Oximeter Temp 97.9 F Temp Source Skin Pulse Oximetry (%) 99 Intake Visit Reasons: 2 mnts f/u appt FM/RT leg pain Intake Note: Patient presents today for fibromyalgia and right leg follow up. Franchise Consultant Required: No Accompanied by: Father Allergies pregabalin [From Lyrica] Adverse Reaction (Unknown, Verified 08/24/23 08:22) tremors Medication List - Last Reconciled 08/24/23 by Jimenez Allen MD baclofen 5 mg PO BID PRN buspirone 30 mg PO BID erenumab-aooe (Aimovig Autoinjector) mg subcut hydroxyzine HCl 25 mg PO BID PRN lamotrigine 200 mg PO BEDTIME metoprolol tartrate 25 mg PO DAILY PRN norethindrone ac-eth estradiol 1-20 mg-mcg (Loestrin) 1 tab PO DAILY omega-3 fatty acids 500 mg PO DAILY prazosin 2 mg PO BEDTIME quetiapine ER 300 mg PO BEDTIME sumatriptan succinate 50 mg PO Q2-4H PRN vitamin B complex 1 cap PO DAILY HPI HPI Comments History of Present Illness Details The patient returns for evaluation of her fibromyalgia. She presents with her father. We tried her on a low dose of Lyrica at 25 mg BID. Within a few days this seemed to cause syndrome of palpitations, muscle spasm, tachycardia and lightheadedness. She [facility]. She had some tachycardia in the ER. About 2 weeks later a tachycardia returned. She has subsequently seen Cardiology. POTS is suspected. Tilt-table test and echocardiogram is pending. She also was seen by an display associate and further blood tests were done but no definitive changes in her treatment were recommended. She saw an bed and breakfast innkeeper who noted paleness of her retina and now steven jyothi has an appointment in Ophthalmology. She also saw the [facility] practice in [place] and blood tests were drawn. She remains on baclofen twice a day, BuSpar twice a day if needed, lamotrigine at bedtime, metoprolol 25 mg daily, prazosin 2 mg nightly, and Seroquel 300 mg nighty. Her overall pains continue in the hands, shoulders, lower back, feet, neck, and ribs. She does do some stretching most days. She has trouble doing aerobic activity as it seems to put her back with more pain for the next 2 or 3 days afterwards. This has included walking. She also tried to do water aerobics class and had pains after that. Akez-ukt-rwinstk analgesics with ibuprofen, naproxen and acetaminophen have not been helpful she says. 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 Negative for appetite change, weight change, fever, chills, malaise Eyes Details: She she claims she has played vision most of the time. Ophthalmology evaluation planned. She has intermittent headaches and was recently started on some Aimovig. She also gets tingling and paresthesias throughout her body. Negative for dry eyes and dizziness ENT Details: Negative for hearing change, tinnitus, oral ulcer, nose bleeds and oral dryness. Card Details: Palpitations and tachycardia as noted above. She has some right-sided rib pains at times. Negative edema and syncope Resp Details: Negative for SOB, cough and wheezing GI Details: Occasional heartburn. Negative indigestion/heartburn, nausea, abdominal pain, bowel changes, diarrhea, constipation and bloody stool. Details: She says she often does not have the urge to urinate but denies any incontine nce. Negative for dysuria, hematuria, nocturia, decreased force/flow and genital discharge Skin/Breast Details: Negative for itching, rash, hives, Raynaud's symptoms, sun sensitivity, and skin cancer Neuro Details: Patient has paresthesias in the limbs. Negative for epilepsy, palsy, stroke, changes in speech, and weakness Psych Details: Anxiety issues she claims her last. Low motivation. Still concerned about the the the the the her underlying illness. Endo Details: Negative for polyuria and polydypsia Artie/Lymph Details: Negative for excessive bruising or bleeding. Physical Exam Vital Signs: Last Vital Signs Temp 97.9 F 08/24/23 08:18 Pulse 109 H 08/24/23 08:18 BP 106/74 08/24/23 08:18 Pulse Ox 99 08/24/23 08:18 BMI result Body Mass Index 24.0 APPEARANCE: Patient in no acute distress EYES no redness, pupils equal and reactive to light, eyelids normal NOSE/SINUS: Airflow through both nares, no nasal discharge, no bleeding THROAT: Oral mucosa moist, no ulcerations NECK: No thyromegaly or masses, no adenopathy, trachea midline. HEART: Regulrar rhythm, S1-S2 heard, no murmurs, rubs or gallops. LUNG: Clear to percussion and auscultation ABD: Normal bowel sounds, no organomegaly, masses or tenderness. EXTREMITIES: No edema, no calf tenderness, normal peripheral pulses. NEURO: Oriented and alert x3. No focal weakness. Reflexes symmetric. Gait normal. SKIN: No inflammatory or neoplastic lesions. No inflammatory lesions. No objective signs of Raynaud's phenomenon. JOINT EXAM:.?? Cervical Spine:.? Mild pain with lateral flexion at 15 degrees or rotation at 45 degrees. Some paraspinal muscle tenderness. Thoracic Spine:.? No scoliosis.? No tenderness on palpation. Lateral Tyson's is normal. Lumbar Spine:.? Alignment normal.? Mild pain with 60 degrees flexion. I do not detect significant limitation of motion. Mild paraspinal muscle tenderness. Chest Wall:.? No tenderness, swelling, increased warmth or erythema. Hands:.? Normal pain-free range of motion. There no tenderness, swelling, redness, or warmth. No thenar atrophy or sensory loss. No objective signs of Raynaud's disease. Wrists:.? There is mild pain with flexion extension at 80 degrees. There is some slight dorsal tenderness but no swelling, increased warmth or erythema. Elbows:. Normal pain-free range of motion without tenderness, swelling, increased warmth or erythema. Shoulders:.?? Full range of motion without pain. No tenderness, weakness, swe lling, increased warmth or erythema. Hips:.? Full range of motion with some lumbar pain at the extremes of internal or external rotation. No groin pain with motion. Hip bursa:.? Mild trochanteric tenderness. Knees:.?? Normal pain-free range of motion without tenderness, swelling, increased warmth or erythema.? There is no effusion or crepitation Ankles:? Normal pain-free range of motion with slight tenderness but no swelling, increased warmth or erythema. Feet:? Normal pain-free range of motion with slight tenderness in the insteps. No tenderness is present in the instep. Elsewhere there is no the tenderness, swelling, increased warmth or erythema. Tender points:? Mild tenderness to digital palpation at the occiput, trapezius, second rib, lateral epicondyle, knees, greater trochanter and gluteal area bilaterally. ? Assessment & Plan Assessment & Plan (1) Fibromyalgia: Code(s): M79.7 - Fibromyalgia Plan Her widespread pains and exercise intolerance continue. I do not see signs of an active inflammatory disease on exam. She has multiple other complaints in multiple organ systems. She has pending workups in the cardiology and ophthalmology. The tachycardia episode is new. Further workup on that is pending. Apparently also the patient had an abnormal retinal exam and ophthalmology evaluation and MRI of the brain are planned. I do not think I have any other suggestions about symptom control here. I do think that she should try to do some light aerobic activity every day. If her inactivity continues, she will get more deconditioned and then any physical stresses will be hard to recover from. A recheck visit at about 3 months is recommended. Coding Level of Care Code Est Pt Level 3 (98804) Diagnoses Fibromyalgia M79.7
== END 2023-08-24 08:54 | disposition home or self-care (01) ==
PROVIDERS: PCP Nurse Practitioner Family; Visit Provider Internal Medicine Rheumatology
DX: M79.7 Fibromyalgia (principal)
CPT/HCPCS: 99213

== ENCOUNTER → 2023-08-24 08:16 | Outpatient (BNVA) | payer BC, SELFPAY | PROVIDERS: PCP Nurse Practitioner Family; Visit Provider Internal Medicine Rheumatology ==

== ENCOUNTER → 2023-08-28 09:58 | Outpatient (REF) | payer BC, SELFPAY ==
--- NOTE | 2023-08-28 10:01 | CA_ITS ---
Transthoracic Echocardiogram Patient (Last, First, Middle): Dolly Stewart, Gender: Female Date of : 2000 Age: 23 Procedure Date: 08/28/2023 Procedure Type: Transthoracic Echocardiogram Location: OP Height: 157.48 cm Weight: 56.7 kg BSA: 1.57 m2 Heart Rate: 97 bpm BP: 118 / 60 mmHg Fourth Hand: VH/VH Referring MD: Ashli Joaquin [employer] MECHANIC-Danelle Symptoms: R00.0 - Tachycardia, unspecified Study Quality: Fair ECG Rhythm: Sinus Conclusions: - The left ventricular systolic function is normal. The visually estimated ejection fraction is between 55-60%. - No obvious valvular pathology seen on this study. (report signed on 08/29/2023) Findings Left Ventricle Normal left ventricular cavity size. There is normal left ventricular wall thickness. The left ventricular systolic function is normal. The visually estimated ejection fraction is between 55-60%. There is no evidence of regional wall motion abnormalities. Diastolic function is normal for age. Right Ventricle Normal right ventricular cavity size and systolic function. Atria Both atria are normal in size. Aortic Valve The aortic valve was not well visualized. There is no aortic valve stenosis. There is no aortic valve regurgitation. Mitral Valve The mitral valve appears normal. There is no mitral valve regurgitation. There is no mitral valve stenosis. Pulmonic Valve The pulmonic valve is likely normal. Tricuspid Valve There is no tricuspid valve regurgitation. Tricuspid regurgitation envelope is inadequate for calculation of right ventricular systolic pressure. Great Vessels The asc aorta is normal in size. Venous The inferior vena cava is normal in size and collapses greater than 50% with inspiration. Pericardium/Pleural There is no evidence of pericardial effusion. Prior Study Comparison No prior study available for comparison. Recommendations, Care & Conclusions No obvious valvular pathology seen on this study. Measurements 2D Linear Measurements IVSd: 0.69 0.6-0.9/0.6-1.0 cm LVIDd: 4.07 3.9-5.3/4.2-5.9 cm LVIDd Index: 2.59 2.4-3.2/2.2-3.1 cm/m2 LVIDs: 2.42 2.0-3.6 cm LVPWd: 0.76 0.7-1.1 cm Ao Root: 1.00 2.1-3.5 cm LA Diam: 2.40 2.7-3.8/3.0-4.0 cm LAIDs Index: 1.53 1.5-2.3 cm/m2 LV Mass: 105.00 67-162/88-224 g LV Mass Index: 66.88 43-95/49-115 g/m2 LVOT Diam: 1.90 3.0+(-)1.3 cm 2D Systolic Function EF 4C: 75.90 >55% Mitral Valve MV Pk E: 0.83 MV PK A: 0.68 MV Decel Time: 169.00 E/A: 1.20 E'Lateral: 12.60 E'Medial: 10.10 E/E' Med: 8.20 E/E' Lat: 6.60 PHT: 50.00 MVA PHT: 4.40 Decel [place]: 4.89 Aortic Valve AoV Pk Torres: 1.03 AoV Mn Torres: 0.76 AoV VTI: 0.20 AoV Pk Grad: 4.00 Aov Mn Grad: 3.00 MEEK Cont.VTI: 1.76 LVOT LVOT Pk Torres: 0.64 LVOT Mn Torres: 0.46 LVOT VTI: 0.12 LVOT Pk Grad: 2.00 LVOT Mn Grad: 1.00 LVOT Diam: 1.90 LVOT Area: 2.84 Diastolic Function MV Pk E: 0.83 MV Pk A: 0.68 E/A: 1.20 E'Medial: 10.10 E/E' Med: 8.20 E' Laterial: 12.60 E/E' Lat: 6.60 Right Ventricle TVS' Torres: 14.60 Tricuspid Valve RA Press: 3.00 Great Vessels Aorta Ao Root-2D: 1.00 2.0-3.7 cm Sinus of Valsalva: 2.50 2.0-3.5 cm Ao Asc: 2.50 2.1-3.4 cm Pulmonary Valve PV Pk Torres: 1.25 Peak PV Grad: 6.00 Updated in Other Vendor System with Status of Final Alec Maravilla MD electronically signed on 08/29/2023 10:34:52 AM with status of Final MTDD
--- NOTE | 2023-08-28 10:01 | HM_ITS ---
* Total monitoring time 5 days 10 hours. * Underlying rhythm is sinus. Average ventricular rate 82/Min. Range 48 to 143/Min. * Very rare supraventricular and ventricular ectopy. * No sustained arrhythmias. * No significant pauses or AV blocks. * Symptoms in patient diary including cold, dizzy, sweating, sick, nausea at different times correlates with sinus rhythm and mild sinus tachycardia. (reporting delayed as diary information had to be reprocessed). MTDD
== END ==
LOC: HO.CARD 09:58
PROVIDERS: PCP Nurse Practitioner Family; Visit Provider Nurse Practitioner Family
DX: R00.0 Tachycardia, unspecified (principal); R11.0 Nausea; I49.3 Ventricular premature depolarization
CPT/HCPCS: 93242; 93306

== ENCOUNTER → 2023-08-28 10:01 | Outpatient (BNV) | payer BC, SELFPAY | PROVIDERS: PCP Nurse Practitioner Family; Visit Provider Internal Medicine | DX: R00.0 Tachycardia, unspecified (principal) | CPT/HCPCS: 93244; 93306 ==

== ENCOUNTER 2023-09-06 08:51 | Outpatient (AMB) | payer BC, SELFPAY ==
[2023-09-06 09:02] VITALS: BP 110/70; BMI 24.0
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
== END 2023-09-06 09:50 | disposition home or self-care (01) ==
PROVIDERS: PCP Nurse Practitioner Family; Visit Provider Advanced Practice Midwife
DX: Z01.419 Encounter for gynecological examination (general) (routine) without abnormal findings (principal); N94.2 Vaginismus; E27.8 Other specified disorders of adrenal gland; M79.7 Fibromyalgia; G43.009 Migraine without aura, not intractable, without status migrainosus
CPT/HCPCS: 99385

== ENCOUNTER → 2023-09-06 08:51 | Outpatient (BNVA) | payer BC, SELFPAY | PROVIDERS: PCP Nurse Practitioner Family; Visit Provider Advanced Practice Midwife ==

== ENCOUNTER 2023-09-07 15:39 | Outpatient (AMB) | payer BC, SELFPAY ==
[2023-09-07 15:41] VITALS: BP 124/72; PULSE 92; O2SAT 99; BMI 23.2
--- NOTE | 2023-09-07 15:41 | A.OFFPC_ITS ---
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 Allergies pregabalin [From Lyrica] Adverse Reaction (Unknown, Verified 09/07/23 16:03) tremors Medication List - Last Reconciled 09/07/23 by SHAILA Morales baclofen 5 mg PO BID PRN buspirone 30 mg PO BID erenumab-aooe (Aimovig Autoinjector) mg subcut hydroxyzine HCl 25 mg PO BID PRN lamotrigine 200 mg PO BEDTIME metoprolol tartrate 25 mg PO DAILY PRN naltrexone 3 mg PO .dialy norethindrone ac-eth estradiol 1-20 mg-mcg (Loestrin) 1 tab PO DAILY omega-3 fatty acids 500 mg PO DAILY prazosin 2 mg PO BEDTIME quetiapine ER 300 mg PO BEDTIME sumatriptan succinate 50 mg PO Q2-4H PRN vitamin B complex 1 cap PO DAILY Tobacco use date assessed: 09/07/23 HPI F/U on back pain HPI Details Patient is a 23-year-old female who presents today to follow-up her chronic conditions. Medical history significant for bipolar 2 disorder-followed by Psychiatry Dr. Oh and therapist, migraine - followed by [facility] Neurology-plan for brain MRI, fibromyalgia - followed by [facility], adrenal hyperplasia - was seen by [facility] and reports this is good -will be seeing [facility] endocrinology in few weeks instead. She reports pain all over her body/back pain, and OTC medications with no help. Patient has finished physical therapy with no improvement in her pain.? Reports that baclofen help somewhat and asking if this can be increased in dose. In addition, patient reports that she was seen by integrative medicine in [place] and had blood work done 2 weeks ago which showed IgG (4.04, normal < 0.90) and IgM (1693, normal < 770) mycoplasma pneumoniae - patient denies any respiratory symptoms-will refer to Infectious Disease for an evaluation, patient also did have D-dimer 1.12 and normal less than 0.50. Patient reports that about 1 month ago she did go to [facility] Emergency department and her chest CT scan was negative for PE. Patient also reports that integrative medicine did start her on naltrexone to help with inflammation in her body, cats claw and zinc. Patient be seeing Integrative Medicine in 1 month. Patient also was seen by chiropractor and did have light therapy with side effect of body spasm - which can be seen with MS per patient. Reports intermittent cold sweats. [facility] Medical History COVID-19 virus infection (~12/2021) Encounter to establish care Surgical History No pertinent past surgical history Family History Mother Migraines Father IBS (irritable bowel syndrome) Maternal Aunt Diabetes type I Maternal Grandmother Hx of thyroidectomy Goiter Sister Endometriosis Social History Household Members: Family Housing: House Alcohol intake: current Alcohol intake frequency: holidays/special occasions only Patient Tobacco Use Status: Never used Tobacco e-Cigarette/Vaping Use: Never Used Second Hand Smoke Exposure: No service: No Current occupational status: employed 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 1. Little interest or pleasure in doing things: not at all 2. Feeling down, depressed, or hopeless: not at all 3. Trouble falling or staying asleep, or sleeping too much: not at all 4. Feeling tired or having little energy: not at all 5. Poor appetite or overeating: not at all 6. Feeling bad about yourself - or that you are a failure or have let yourself or your family down: not at all 7. Trouble concentrating on things, such as reading the newspaper or watching television: not at all 8. Moving or speaking so slowly that other people could have noticed. Or the opposite - being so fidgety or restless that you have been moving around a lot more than usual: not at all 9. Thoughts that you would be better off or of hurting yourself in some way: not at all Total score: 0 Depression Screening Interpretation: Negative Depression Screening Done: Yes 65704 - PHQ-9 Billing: Yes Source: Developed by Drs. Michelet Parrish, Barby Blakc, Lemuel Rene and colleagues, with an educational caesar from [employer]. Thrive Questionnaire Date Thrive assessed: 03/16/23 AUDIT C Alcohol Use Questionnaire (AUDIT-C) 1. How often do you have a drink containing alcohol?: 2-4 times a month 2. How many drinks containing alcohol do you have on a typical day when you are drinking?: 1 or 2 3. How often do you have six or more drinks on one occasion?: Never Total Score: 2 Score Reviewed/Action Taken: No MARGARITA-7 AMB Questionnaire MARGARITA-7 Date MARGARITA - 7 assessed: 03/16/23 Source: Developed by Drs. Michelet Parrish, Barby Black, Lemuel Rene and colleagues, with an educational caesar from [employer]. Review of Systems Const Denies body aches, Denies chills, Reports fatigue, Denies fever(s) and Reports headache(s) Eyes Denies change in vision ENT Denies dizziness, Denies otalgia, Reports headache(s), Denies nasal discharge, Denies sinus pain and Denies sore throat Card Denies chest pain, Denies edema, Denies lightheadedness and Denies dyspnea Resp Denies cough and Denies dyspnea GI Denies constipation, Denies diarrhea, Denies nausea and Denies vomiting Denies dysuria Musc Reports as per HPI, Reports back pain, Reports myalgias, Reports arthralgias (hands and wrists ), Denies joint swelling, Reports numbness and Reports tingling Skin/Breast Denies lesions and Denies rash Neuro Denies dizziness, Reports headache(s), Reports numbness and Reports tingling Endo Reports fatigue Physical exam (Primary Care) Vital Signs: Last Vital Signs Pulse 92 09/07/23 15:41 BP 124/72 09/07/23 15:41 Pulse Ox 99 09/07/23 15:41 Oxygen Delivery Method Room Air 09/07/23 15:41 BMI result Body Mass Index 23.2 Tobacco/Smoking Status: Tobacco use Status Tobacco use date assessed 09/07/23 09/07/23 15:42 Patient Tobacco Use Status Never used Tobacco 09/07/23 15:42 e-Cigarette/Vaping Use Never Used 09/07/23 15:42 PHQ-9: PHQ-9 Score PHQ-9: Total score 0 09/07/23 16:12 Depression Screening Interpretation: Negative Thrive Assessment: Date of Thrive Assessment Date Thrive assessed 03/16/23 09/07/23 15:42 Const General: cooperative and no acute distress Orientation/consciousness: patient oriented x3 HENMT Other: Left TM normal Right TM partially obstructed by cerumen visualized TM Head: Yes normocephalic and Yes atraumatic Face and sinus: Yes sinuses nontender Mouth: oropharynx normal and moist mucous membranes Throat: Yes posterior oropharynx normal Eyes General: appearance normal, both eyes and all related structures Pupils: Equal, round and reactive pupils present EOM: EOMs intact bilaterally Neck Neck: Yes normal visual inspection, Yes full ROM and Yes no lymphadenopathy Resp Effort & Inspection: normal respiratory effort and able to speak in complete sentences Auscultation: clear to auscultation bilaterally, no crackles, no rales, no rhonchi and no wheezes Cardio Rate: regular rate Rhythm: regular rhythm Heart sounds: S1 normal heart sound present, S2 normal heart sound present and no murmurs GI Palpation (GI): Soft to palpation, not firm, nontender, no guarding, not rigid and no hepatosplenomegaly Auscultation: normal bowel sounds Back/Spine/Pelvis Thoracic/Lumbar Spine: thoraco-lumbar ROM normal, paraspinal muscle tenderness, thoracic spinal tenderness and lumbar spinal tenderness Skin General skin exam: no rashes or lesions noted Neuro General: patient oriented x3 and CN's II-XI intact bilaterally Cranial nerves: Yes Equal, round and reactive pupils present Gait exam (Neuro): Normal gait present Motor exam (neuro): 5/5 motor strength present throughout Extrem General: Yes full ROM and No edema Office Procedures Flu Questionnaire Does the patient have a severe egg allergy?: No Does the patient have severe life threatening allergies?: No Does the patient have a fever or illness today?: No Has the patient ever had Guillain-[place] Syndrome?: No Has the patient ever had any past reaction to a flu shot?: No Immunizations flu vacc [id number] 6mos up(PF) 60 mcg(15 mcgx4)/0.5 mL IM syringe Performing Provider: SHAILA Morales [facility] Administered by: CHAIM Wilson on 09/07/23 15:55 Dose Route Admin Location Dispensed Lot Number Expiration Date NDC Relief Manager 0.5 mL IM Left Deltoid 0.5 mL [id number] 09/07/23 51309-953-71 [employer] VIS Given Date VIS Provided VIS Publication Date 09/07/23 Single Vaccine 21 Eligibility Eligibility Date Funding Source Not [facility] Eligible 09/07/23 Private Assessment and Plan Assessment & Plan (1) Adrenal hyperplasia: Code(s): E27.8 - Other specified disorders of adrenal gland Plan: adrenal hyperplasia - was seen by [facility] and reports this is good -will be seeing [facility] endocrinology in few weeks instead. (2) Fibromyalgia: Code(s): M79.7 - Fibromyalgia Plan: Continue to follow-up with [facility] Patient reports that she was on gabapentin in the past although she stopped taking it due to side effects Patient also did have physical therapy with no improvement in her pain (3) Back pain: Code(s): M54.9 - Dorsalgia, unspecified Plan: Physical exam revealed thoracic and lumbar spinal tenderness as well as paraspinal muscle tenderness. Patient has finished physical therapy with no improvement in pain. Will obtain x-ray of thoracic and lumbar spine. Increase baclofen to 10 mg b.i.d.-educated about drowsiness. Continue heating packs p.r.n.. (4) Mycoplasma pneumoniae pneumonia: Code(s): J15.7 - Pneumonia due to Mycoplasma pneumoniae Plan: Patient denies any respiratory symptoms IgG and IgM positive with integrative Medicine, will refer to Infectious Disease for an evaluation Patient agreed with the plan (5) Positive D dimer: Comment: with integrative medicine Code(s): R79.89 - Other specified abnormal findings of blood chemistry Plan: Will repeat D-dimer, D-dimer 1.12 (normal <0.50) with integrative medicine 2 weeks ago D-dimer was negative 06/2023 in [facility] Patient reports about 1 month ago she did have lung CT scan which was negative for PE at [facility] Plan Keep appointment with PCP as scheduled or follow-up sooner as needed Patient agreed with the plan Orders: Orders Influenza [id number] Immunization Today Z23 - Encounter for immunization D Dimer High Sensitivity Today R79.89 - Other specified abnormal findings of blood chemistry Referrals Infectious Disease Referral J15.7 - Pneumonia due to Mycoplasma pneumoniae Medications: New baclofen 10 mg PO BID 60 tabs 0RF M54.9 - Dorsalgia, unspecified Discontinued baclofen Discontinued Reason: Doctor's Order 5 mg PO BID PRN 30 tabs 0RF muscle spasm M54.9 - Dorsalgia, unspecified Coding Level of Care Code Est Pt Level 3 (69929) Diagnoses Adrenal hyperplasia E27.8 Fibromyalgia M79.7 Back pain M54.9 Mycoplasma pneumoniae pneumonia J15.7 Positive D dimer R79.89
== END 2023-09-07 16:34 | disposition home or self-care (01) ==
PROVIDERS: PCP Nurse Practitioner Family; Visit Provider Nurse Practitioner Family
DX: E27.8 Other specified disorders of adrenal gland (principal); M79.7 Fibromyalgia; M54.9 Dorsalgia, unspecified; J15.7 Pneumonia due to Mycoplasma pneumoniae; R79.89 Other specified abnormal findings of blood chemistry; Z23 Encounter for immunization
CPT/HCPCS: 90471; 90686; 99213

== ENCOUNTER 2023-09-08 12:03 | Outpatient (REF) | payer BC, SELFPAY ==
[2023-09-08 13:57] LABS: D Dimer High Sensitivity < 150 NG/ML
== END 2023-09-08 12:04 | disposition home or self-care (01) ==
LOC: HO.LAB 12:03
PROVIDERS: PCP Nurse Practitioner Family; Visit Provider Nurse Practitioner Family
DX: R79.89 Other specified abnormal findings of blood chemistry (principal)
CPT/HCPCS: 36415; 85379

== ENCOUNTER 2023-09-21 09:27 | Outpatient (AMB) | payer BC, SELFPAY ==
--- NOTE | 2023-09-21 09:31 | A.OFFVIS_ITS ---
Intake Vital Signs 09/21/23 09:32 Height 5 ft 2 in Weight 130 lb 15.273 oz BMI 23.9 BP 120/72 Blood Pressure Location Lt brachial Position Sitting Pulse 82 Pulse Source Pulse Oximeter Intake Visit Reasons: follow up after testing Intake Note: f/u after testing Allergies pregabalin [From Lyrica] Adverse Reaction (Unknown, Verified 09/21/23 09:34) tremors Medication List - Last Reconciled 09/21/23 by Ashli Joaquin NP-C baclofen 10 mg PO BID buspirone 30 mg PO BID erenumab-aooe (Aimovig Autoinjector) mg subcut hydroxyzine HCl 25 mg PO BID PRN lamotrigine 200 mg PO BEDTIME metoprolol tartrate 25 mg PO DAILY PRN naltrexone 3 mg PO .dialy norethindrone ac-eth estradiol 1-20 mg-mcg (Loestrin) 1 tab PO DAILY omega-3 fatty acids 500 mg PO DAILY prazosin 2 mg PO BEDTIME quetiapine ER 300 mg PO BEDTIME sumatriptan succinate 50 mg PO Q2-4H PRN vitamin B complex 1 cap PO DAILY HPI follow up after testing HPI Details Dolly is a 23-year-old female with past medical history of migraines, fibromyalgia who was being evaluated for rapid heartbeats, sinus tachycardia. On last visit a echocardiogram, Holter monitor and tilt-table test were ordered. Today she reports that she continues to feel about the same. She has elevated heart rate during physical activity. At times she will get nausea and lightheaded. No presyncope, syncope, falls. She has not had recurrent ER visits for this symptoms since last visit. She is mostly sedentary. She has full body pains and has a tentative diagnosis of the fibromyalgia. She recently started on new medication for her migraines. She does not drink caffeinated beverages. She has been working on better hydration. Significant other is present. COUNTS INCLUDE 234 BEDS AT THE [facility] Medical History COVID-19 virus infection (~12/2021) Encounter to establish care Surgical History No pertinent past surgical history Family History Mother Migraines Father IBS (irritable bowel syndrome) Maternal Aunt Diabetes type I Maternal Grandmother Hx of thyroidectomy Goiter Sister Endometriosis Social History Household Members: Family Housing: House Alcohol intake: current Alcohol intake frequency: holidays/special occasions only Patient Tobacco Use Status: Never used Tobacco e-Cigarette/Vaping Use: Never Used Second Hand Smoke Exposure: No service: No Current occupational status: employed 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 Cognitive needs: No Hearing needs: No Vision needs: Yes (glasses) Female Reproductive History Menstrual Age of Menarche: 11 Review of Systems Const Details: migraine headaches All systems reviewed & are unremarkable except as noted in HPI and below ENT Denies dizziness Card Details: lightheaded at times Denies chest pain, Denies chest pain at rest, Denies chest pain with activity, Reports rapid heart rate, Denies pedal edema, Denies edema, Denies leg edema, Denies lightheadedness, Denies palpitations, Denies dyspnea, Denies dyspnea on exertion and Denies orthopnea Resp Denies cough, Denies dyspnea and Denies dyspnea on exertion GI Denies hematochezia and Denies change in stool character Musc Denies abnormal gait, Denies limited range of motion, Denies muscle cramps, Denies muscle weakness, Denies numbness, Denies radiating pain into limb, Denies stiffness and Denies tingling Neuro Denies abnormal gait, Denies dizziness, Denies numbness and Denies tingling Endo Denies palpitations Physical Exam Vital Signs: Last Vital Signs Pulse 82 09/21/23 09:32 BP 120/72 09/21/23 09:32 BMI result Body Mass Index 23.9 Const General: cooperative, healthy appearing, comfortable and no acute distress Orientation/consciousness: patient oriented x3 Neck Neck: Yes normal visual inspection Resp Effort & Inspection: normal respiratory effort Auscultation: clear to auscultation bilaterally, no crackles, no rales, no rhonchi and no wheezes Cardio Jugular venous distension: no JVD Rate: regular rate Rhythm: regular rhythm Heart sounds: S1 normal heart sound present, S2 normal heart sound present, no murmurs and no rubs Neuro General: patient oriented x3 Extrem General: Yes normal to inspection, No no pedal edema and No calf tenderness Psych Appearance: grossly normal Mental Status: mental status grossly normal Speech and movement: Normal speech and movement present Assessment & Plan Assessment & Plan (1) Sinus tachycardia: Code(s): R00.0 - Tachycardia, unspecified Plan: In recent months she has been having issues with tachycardia when doing activities and in an upright position. When heart is going fast she will feel nausea and lightheaded. ED evaluations without acute findings. Last EKG done as at [facility] on 07/25/2023 showed sinus tachycardia, normal AK, QRS, QTC intervals, no evidence of pre-excitation. TSH mildly elevated at 5, free T4 normal, D-dimer normal. EKG done last visit shows sinus rhythm with sinus arrhythmia, rate 77. Orthostatic vitals done showing sitting blood pressure 98/48, pulse rate 68, standing for 2 minutes blood pressure 98/48, pulse 88. She does not drink caffeinated beverages or excess chocolate. She underwent a Holter monitor on 08/28/2023 for 5 days which showed sinus rhythm, average heart rate 82, heart rate range 48 to 143, rare ectopy. An echocardiogram was done on 08/28/2023 with EF 55-60%, no valve abnormalities. A tilt-table test was done however results are not available at the time of this visit. She recalls being told that she did not have POTS. She has been taking metoprolol tartrate 12.5 mg as needed for tachycardia. She is currently doing this a few times weekly. She does not feel the need for daily medications. At this time will wait on tilt-table results. She may have inappropriate sinus tachycardia verses deconditioning. She tells me she is also going to follow with Infectious Disease as she had a recent tests showing pneumonia however she has no symptoms. If she in fact does have a viral syndrome then her heart rate will be elevated in response. Reviewed with her that her max predicted heart rate for her age of 23 is 199. Reviewed good hydration, use of compression stockings when upright as this may help to limit tachycardia. Increase physical activity as able. Pursue treatment for any underlying medical issues as these can likely add to tachycardia. Offered reassurance overall that no primary cardiac issue is clearly noted. Cardiology follow-up 6 months, sooner if needed. (2) Nausea: Code(s): R11.0 - Nausea (3) Fibromyalgia: Code(s): M79.7 - Fibromyalgia (4) POTS (postural orthostatic tachycardia syndrome): Code(s): G90.A - Postural orthostatic tachycardia syndrome [POTS] Plan: Not confirmed as of yet Coding Level of Care Code Est Pt Level 3 (27039) Diagnoses Sinus tachycardia R00.0 Nausea R11.0 Fibromyalgia M79.7 POTS (postural orthostatic tachycardia syndrome) G90.A Time Spent (min) 24
[2023-09-21 09:32] VITALS: BP 120/72; PULSE 82; BMI 23.9
== END 2023-09-21 10:13 | disposition home or self-care (01) ==
PROVIDERS: PCP Nurse Practitioner Family; Visit Provider Nurse Practitioner Family
DX: R00.0 Tachycardia, unspecified (principal); R11.0 Nausea; M79.7 Fibromyalgia; G90.A Postural orthostatic tachycardia syndrome [POTS]
CPT/HCPCS: 99213

== ENCOUNTER → 2023-09-21 09:27 | Outpatient (BNVA) | payer BC, SELFPAY | PROVIDERS: PCP Nurse Practitioner Family; Visit Provider Nurse Practitioner Family ==

== ENCOUNTER 2023-10-23 16:17 | Outpatient (REF) | payer BC, SELFPAY ==
[2023-10-26 20:14] LABS: Mycoplasma Pneumoniae - IgG 3.11 (<=0.90); Mycoplasma Pneumoniae - IgM 1733 U/mL (<770)
== END 2023-10-23 16:18 | disposition home or self-care (01) ==
LOC: HO.LAB 16:17
PROVIDERS: PCP Nurse Practitioner Family; Visit Provider Physician Assistant
DX: A48.8 Other specified bacterial diseases (principal)
CPT/HCPCS: 36415; 86738

== ENCOUNTER 2024-02-23 11:49 | Outpatient (AMB) | payer BC, SELFPAY ==
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
[2024-02-23 12:09] VITALS: BP 134/82; PULSE 102; RESP 12; TEMP 37.6; O2SAT 100; BMI 25.7
== END 2024-02-23 12:41 | disposition home or self-care (01) ==
PROVIDERS: PCP Nurse Practitioner Family; Visit Provider Nurse Practitioner Family
DX: Z00.00 Encounter for general adult medical examination without abnormal findings (principal); J15.7 Pneumonia due to Mycoplasma pneumoniae; E27.8 Other specified disorders of adrenal gland; F31.81 Bipolar II disorder
CPT/HCPCS: 99395

== ENCOUNTER 2024-03-22 13:52 | Outpatient (AMB) | payer BC, SELFPAY ==
[2024-03-22 13:57] VITALS: BP 102/84; PULSE 99; BMI 26.2
--- NOTE | 2024-03-22 13:57 | MHC.OFFVIS ---
Vital Signs 03/22/24 13:57 Height 5 ft 0.9 in Weight 138 lb 0.15 oz BMI 26.2 BP 102/84 Blood Pressure Location Lt brachial Position Sitting Pulse 99 Pulse Source Pulse Oximeter Intake Visit Reasons: 6 month follow-up [employer]ement [employer] Operator Required: No Allergies pregabalin [From Lyrica] Adverse Reaction (Unknown, Verified 03/22/24 13:59) tremors Medication List - Last Reconciled 03/22/24 by GUCCI Wharton azithromycin (Zithromax) For 250 mg dose pack: take 500 mg today (day 1), then 250 mg for 4 days (days 2-5) PO baclofen 10 mg PO BID 90 days buspirone 30 mg PO BID clonidine HCl 0.1 mg PO BEDTIME doxycycline hyclate 100 mg PO BID erenumab-aooe (Aimovig Autoinjector) mg subcut hydroxyzine HCl 25 mg PO BID PRN lamotrigine 200 mg PO BEDTIME metoprolol tartrate 12.5 - 25 mg (0.5 - 1 x 25 mg) PO DAILY PRN norethindrone ac-eth estradiol 1-20 mg-mcg (Loestrin) 1 tab PO DAILY quetiapine ER 300 mg PO BEDTIME sumatriptan succinate 50 mg PO Q2-4H PRN HPI HPI 6 month follow-up: Details: Dolly is a 24-year-old female with past medical history of migraines, fibromyalgia/body pain who has been evaluated for rapid heartbeats, sinus tachycardia without significant cardiac findings. Today she reports that since her last visit in August she went to [facility] for medical care. She saw an infectious disease doctor who diagnosed her as having mycoplasma pneumonia. That can cause nerve damage which resulted in her body discomfort as well as heart palpitations. She has been on treatment with antibiotics and she says her symptoms are significantly improved. She no longer has any concerning heart palpitations, lightheadedness, nausea. Her body pains have greatly improved. No new symptoms to report. She denies shortness of breath, presyncope, syncope, falls. No chest discomfort at rest or with activity. She is now doing yoga 2 times weekly and able to go for walks without issues. [facility] Medical History COVID-19 virus infection (~12/2021) Encounter to establish care Surgical History No pertinent past surgical history Family History Mother Migraines Father IBS (irritable bowel syndrome) Maternal Aunt Diabetes type I Maternal Grandmother Hx of thyroidectomy Goiter Sister Endometriosis Social History Household Members: Family Housing: House Alcohol intake: current Alcohol intake frequency: holidays/special occasions only Patient Tobacco Use Status: Never used Tobacco e-Cigarette/Vaping Use: Never Used Second Hand Smoke Exposure: No service: No Current occupational status: employed 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 Cognitive needs: No Hearing needs: No Vision needs: Yes (glasses) Female Reproductive History Menstrual Age of Menarche: 11 Review of Systems Const All systems reviewed & are unremarkable except as noted in HPI and below ENT Denies dizziness Card Denies chest pain, Denies chest pain at rest, Denies chest pain with activity, Denies rapid heart rate, Denies pedal edema, Denies edema, Denies leg edema, Denies lightheadedness, Denies palpitations, Denies dyspnea, Denies dyspnea on exertion and Denies orthopnea Resp Denies cough, Denies dyspnea and Denies dyspnea on exertion GI Denies hematochezia and Denies change in stool character Musc Denies abnormal gait, Denies limited range of motion, Denies muscle cramps, Denies muscle weakness, Denies numbness, Denies radiating pain into limb, Denies stiffness and Denies tingling Neuro Denies abnormal gait, Denies dizziness, Denies numbness and Denies tingling Endo Denies palpitations Physical Exam Vital Signs: Last Vital Signs Pulse 99 03/22/24 13:57 BP 102/84 03/22/24 13:57 BMI result Body Mass Index 26.2 Const General: cooperative, healthy appearing, comfortable and no acute distress Orientation/consciousness: patient oriented x3 Neck Neck: Yes normal visual inspection Resp Effort & Inspection: normal respiratory effort Auscultation: clear to auscultation bilaterally, no crackles, no rales, no rhonchi and no wheezes Cardio Jugular venous distension: no JVD Rate: regular rate Rhythm: regular rhythm Heart sounds: S1 normal heart sound present, S2 normal heart sound present, no murmurs and no rubs Neuro General: patient oriented x3 Extrem General: Yes normal to inspection, No no pedal edema and No calf tenderness Psych Appearance: grossly normal Mental Status: mental status grossly normal Speech and movement: Normal speech and movement present Assessment & Plan Assessment & Plan (1) Sinus tachycardia: Code(s): R00.0 - Tachycardia, unspecified Category: Medical Plan: Prior cardiac evaluation for tachycardia when doing activities and in an upright position with symptoms of nausea and lightheadedness. Prior ED evaluations without acute findings. Last EKG done as at [facility] on 07/25/2023 showed sinus tachycardia, normal NM, QRS, QTC intervals, no evidence of pre-excitation. TSH mildly elevated at 5, free T4 normal, D-dimer normal. EKG done on follow-up visit showed sinus rhythm with sinus arrhythmia, rate 77. She was not orthostatic on examination. She underwent a Holter monitor on 08/28/2023 for 5 days which showed sinus rhythm, average heart rate 82, heart rate range 48 to 143, rare ectopy. An echocardiogram was done on 08/28/2023 with EF 55-60%, no valve abnormalities. A tilt-table test was done on 09/19/2023 showing appropriate heart rate and blood pressure response to tilt. She was not felt to have a diagnosis of POTS. She was given a p.r.n. dose o metoprolol that she could use for tachycardia. At that time she was thought to have inappropriate sinus tachycardia verses deconditioning. Her physical activity was limited by body discomfort/fibromyalgia. Today she reports that since her last visit she followed with a infectious disease doctor in [facility] and has been diagnosed with mycoplasma pneumonia. She was started on the appropriate antibiotic and tells me that her symptoms have greatly improved. She no longer has issues with tachycardia. She has not requiring any use of metoprolol. She continues on antibiotic therapy. She describes that the mycoplasma pneumonia can cause nerve damage in the body which accounts for her pain. She had been in [place] last spring prior to becoming ill and starting with tachycardia symptoms. At this time it seems that her tachycardia was most likely related to her bacterial illness. Symptoms currently resolved. Cardiology follow-up will be as needed. She is agreeable to this plan. . (2) Fibromyalgia: Comment: 06/2023 pregabalin not tolerated; 08/2023 gabapentin started Code(s): M79.7 - Fibromyalgia Category: Medical Plan: As above (3) POTS (postural orthostatic tachycardia syndrome): Code(s): G90.A - Postural orthostatic tachycardia syndrome [POTS] Plan: Patient does not carry a diagnosis of POTS. Plan Time spent on chart review, documentation, interview and assessment Coding Level of Care Code Est Pt Level 3 (99755) Diagnoses Sinus tachycardia R00.0 Fibromyalgia M79.7 POTS (postural orthostatic tachycardia syndrome) G90.A Time Spent (min) 24
== END 2024-03-22 14:40 | disposition home or self-care (01) ==
PROVIDERS: PCP Nurse Practitioner Family; Visit Provider Nurse Practitioner Family
DX: R00.0 Tachycardia, unspecified (principal); M79.7 Fibromyalgia; G90.A Postural orthostatic tachycardia syndrome [POTS]
CPT/HCPCS: 99213

== ENCOUNTER → 2024-03-22 13:52 | Outpatient (BNVA) | payer BC, SELFPAY | PROVIDERS: PCP Nurse Practitioner Family; Visit Provider Nurse Practitioner Family ==